=== PATIENT | male | born 1935 | race Caucasian/White ===

== ENCOUNTER 2017-01-22 15:53 | Emergency (ER) | payer MEDICARE, BC ==
[2017-01-22 16:13] VITALS: BP 158/78
[2017-01-22] MEDS ORDERED: Sodium Chloride 0.9% 500 ML IV ONE (16:46)
--- NOTE | 2017-01-22 16:57 | EDM.PDOC ---
ED HPI GENERAL MEDICAL PROBLEM - General Chief Complaint: Neuro Symptoms/Deficits Stated Complaint: NOT FEELING WELL Time Seen by Provider: 01/22/17 16:20 Source of Information: Reports: Patient, Family, Shelter Records History Limitations: Reports: Other (Chronic confusion, dementia) - History of Present Illness INITIAL COMMENTS - FREE TEXT/NARRATIVE: 81-year-old male was displaying symptoms of weakness, increased expressive aphasia which worried the long-term staff so they called family to come and check on him. The daughter came in to see him but when she got there he was already ready to go to the emergency room. She really can't say that he seems much different than his baseline. He has chronic agitation and does not want to be here. He has had similar episodes with dehydration, and does not take fluids well. The patient himself has no complaints. Onset: Unknown/Unsure Severity: Mild Associated Symptoms: Reports: No Other Symptoms - Related Data Allergies Allergy/AdvReac Type Severity Reaction Status Date / Time kiwi Allergy Severe Anaphylactic Verified 03/18/16 10:51 Shock [place] And Derivatives AdvReac Other Verified 03/19/16 10:40 simvastatin AdvReac Muscle Verified 03/19/16 10:40 Aches tomato AdvReac Other Verified 03/19/16 10:40 Home Meds: Home Meds Aspirin [Adult Low Dose Aspirin EC] 81 mg PO DAILY 11/09/13 [History] Clopidogrel Bisulfate [Clopidogrel] 75 mg PO DAILY 11/09/13 [History] [place]-3 Fatty Acids [[place]-3] 1,200 mg PO BID 11/09/13 [History] Calcium Carbonate/Vitamin D3 [Calcium 600-Vit D3 400 Tablet] 1,000 mg PO DAILY 11/11/13 [History] Nitroglycerin 0.4 mg SL ASDIRECTED PRN 10/27/15 [History] *[place] Collagen Gelatin 1 dose PO TID 02/25/16 [History] Acetaminophen 1,000 mg PO TID 02/25/16 [History] Hydroxychloroquine [Plaquenil] 1 tab PO BID 02/25/16 [History] Sertraline HCl [Zoloft] 50 mg PO DAILY 03/18/16 [History] Iron PS Complex & Vit B12/FA [Ferrex 150 Forte] 1 cap PO DAILY #30 cap 03/20/16 [Rx] Past Medical History HEENT History: Reports: Cataract Cardiovascular History: Reports: Stents, Other (See Below) 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 Musculoskeletal History: Reports: Osteoarthritis, RA Neurological History: Reports: Neuropathy, Peripheral Psychiatric History: Reports: Dementia Hematologic History: Reports: Anticoagulation Therapy Immunologic History: Reports: Other (See Below) Other Immunologic History: d/t medications Dermatologic History: Reports: Eczema - Infectious Disease History Infectious Disease History: Reports: Chicken Pox - Past Surgical History HEENT Surgical History: Reports: None Cardiovascular Surgical History: Reports: Coronary Artery Stent, Pacer GI Surgical History: Reports: Hernia Repair/Other Social & Family History - Family History Family Medical History: Noncontributory - Tobacco Use Smoking Status *Q: Never Smoker Years of Tobacco use: 20 Used Tobacco, but Quit: Yes Month Tobacco Last Used: April Second Hand Smoke Exposure: No - Caffeine Use Caffeine Use: Reports: None - Alcohol Use Days Per Week of Alcohol Use: 1 Number of Drinks Per Day: 1 Total Drinks Per Week: 1 - Recreational Drug Use Recreational Drug Use: No ED ROS GENERAL - Review of Systems Review Of Systems: Unable To Obtain (Patient cannot cooperate to give a review of systems, declines any problems) ED EXAM, NEURO - Physical Exam Exam: See Below General Appearance: Alert, No Apparent Distress, Other (Facial expressions looks symmetric, speech is clear. He does seem to have some expressive a phasic difficulties but he has a chronic waxing and waning problem with this. I do not know what his baseline is.) Eye Exam: Bilateral Eye: EOMI Respiratory/Chest: No Respiratory Distress, Lungs Clear Cardiovascular: Regular Rate, Rhythm GI/Abdominal: Soft, Non-Tender Neurological: Alert, Other (I cannot reproduce motor deficits, his grasp strength is equal and he can hold both legs up against gravity) Psychiatric: Other (Somewhat agitated personality) Skin Exam: Warm, Dry Course - Vital Signs Last Recorded V/S: Last Vital Signs Temp 97.4 F 01/22/17 16:09 Pulse 69 01/22/17 16:09 Resp 20 01/22/17 16:09 BP 158/78 H 01/22/17 16:09 Pulse Ox - Orders/Labs/Meds Labs: Laboratory Tests 01/22/17 01/22/17 Range/Units 16:54 16:54 WBC 7.5 (4.5-11.0) K/uL RBC 4.67 (4.30-5.90) M/uL Hgb 9.8 L (12.0-15.0) g/dL Hct 34.4 L (40.0-54.0) % MCV 74 L (80-98) fL MCH 21 L (27-31) pg MCHC 29 L (32-36) % Plt Count 457 H (150-400) K/uL Neut % (Auto) 75 H (36-66) % Lymph % (Auto) 11 L (24-44) % [place] % (Auto) 10 H (2-6) % Eos % (Auto) 4 (2-4) % Baso % (Auto) 1 (0-1) % Sodium 139 L (140-148) mmol/L Potassium 4.7 (3.6-5.2) mmol/L Chloride 102 (100-108) mmol/L Carbon Dioxide 32 (21-32) mmol/L Anion Gap 9.7 (5.0-14.0) mmol/L BUN 25 H (7-18) mg/dL Creatinine 0.9 (0.8-1.3) mg/dL Est Cr Clr Drug Dosing 58.45 mL/min Estimated GFR (MDRD) > 60 (>60) Glucose 113 H (74-106) mg/dL Calcium 8.6 (8.5-10.1) mg/dL Meds: Medications Discontinued Medications Generic Name Dose Route Start Last Admin Trade Name Freq PRN Reason Stop Dose Admin Sodium Chloride 500 mls @ 1,000 mls/hr 01/22/17 16:46 01/22/17 17:10 Normal Saline IV 01/22/17 17:15 1,000 mls/hr .BOLUS ONE Administration - Re-Assessments/Exams Free Text/Narrative Re-Assessment/Exam: 01/22/17 16:56 Patient will be given 500 mL of normal saline and we will check a CBC and BMP. No other workup is necessary at this time, no scan is necessary. His daughter who accompanies him and agrees with the plan. 01/22/17 17:39 patient received 500 mL of normal saline, his labs were reassuring. He is anemic but it's consistent with past levels. He was discharged with a diagnosis of mild dehydration. Departure - Departure Time of Disposition: 17:59 Disposition: DC/Tfer to [facility] Condition: Good Clinical Impression: Dehydration - Discharge Information Instructions: Dehydration, Adult, [id number] Referrals: Negrito Cronin MD [Primary Care Provider] - Forms: ED Department Discharge Care Plan Goals: Increase diet and activity as tolerated. Continue your regular medications. Return at any time if worsening or concerns.
== END 2017-01-22 17:59 ==
LOC: JP.ED 15:53
DX: E86.0 Dehydration (principal); M19.90 Unspecified osteoarthritis, unspecified site; Z91.018 Allergy to other foods; Z79.82 Long term (current) use of aspirin; Z79.899 Other long term (current) drug therapy
CPT/HCPCS: 36415; 80048; 85025; 96360; 99285; J7040; 99284

== ENCOUNTER 2017-03-13 08:24 | Emergency (ER) | payer MEDICARE, BC ==
--- NOTE | 2017-03-13 08:54 | EDM.PDOC ---
ED HPI GENERAL MEDICAL PROBLEM - General Chief Complaint: Upper Extremity Injury/Pain Stated Complaint: LEFT SHOULDER,CHEST DISCOMFORT Time Seen by Provider: 03/13/17 08:43 Source of Information: Reports: Patient, Family, RN Notes Reviewed History Limitations: Reports: No Limitations - History of Present Illness INITIAL COMMENTS - FREE TEXT/NARRATIVE: 81-year-old gentleman presents emergency department today complaint of left shoulder pain, he does live in assisted living center they're also concerned about intermittent chest pain that has been going on for a week he has had some falls over the last couple of months, one a couple of weeks ago. He is pain- free at this time he feels he has full range of motion of the left shoulder he states that it is intermittent and positional when he can induce the pain. However he is unable to reproduce it at this time Left Shoulder Pain Score (Numeric/FACES): 4 - Related Data Allergies Allergy/AdvReac Type Severity Reaction Status Date / Time kiwi Allergy Severe Anaphylactic Verified 03/18/16 10:51 Shock [place] And Derivatives AdvReac Other Verified 03/19/16 10:40 simvastatin AdvReac Muscle Verified 03/19/16 10:40 Aches tomato AdvReac Other Verified 03/19/16 10:40 Home Meds: Home Meds Aspirin [Adult Low Dose Aspirin EC] 81 mg PO DAILY 11/09/13 [History] Nitroglycerin 0.4 mg SL ASDIRECTED PRN 10/27/15 [History] *[place] Collagen Gelatin 1 dose PO TID 02/25/16 [History] Acetaminophen 1,000 mg PO TID 02/25/16 [History] Iron PS Complex & Vit B12/FA [Ferrex 150 Forte] 1 cap PO DAILY #30 cap 03/20/16 [Rx] Acetaminophen [Mapap] 500 mg PO TID 03/13/17 [History] DULoxetine [Cymbalta] 60 mg PO DAILY 03/13/17 [History] Furosemide [Lasix] 20 mg PO BID 03/13/17 [History] LORazepam [Ativan] 0.25 mg PO DAILY 03/13/17 [History] Melatonin 6 mg PO BEDTIME 03/13/17 [History] Mirtazapine 15 mg PO DAILY 03/13/17 [History] Nystatin [Nystatin Crm] 15 gm TOP BID 03/13/17 [History] [place]-3/DHA/Epa/Fish Oil [Fish Oil 1,000 mg Softgel] 1 each PO DAILY 03/13/17 [ History] [place]-3/DHA/Epa/Fish Oil [Fish Oil 1,400 MG Softgel] 1,500 mg PO DAILY 03/13/17 [History] Potassium 20 meq PO DAILY 03/13/17 [History] Prednisone [IJD: Prednisone] 5 mg PO DAILY 03/13/17 [History] Past Medical History HEENT History: Reports: Cataract Cardiovascular History: Reports: CAD, Stents, Other (See Below) 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 Musculoskeletal History: Reports: Osteoarthritis, RA Neurological History: Reports: Neuropathy, Peripheral Psychiatric History: Reports: Dementia Hematologic History: Reports: Anticoagulation Therapy Immunologic History: Reports: Other (See Below) Other Immunologic History: d/t medications Dermatologic History: Reports: Eczema - Infectious Disease History Infectious Disease History: Reports: Chicken Pox, Measles, Mumps - Past Surgical History HEENT Surgical History: Reports: None Cardiovascular Surgical History: Reports: Coronary Artery Stent, Pacer GI Surgical History: Reports: Hernia Repair/Other Social & Family History - Family History Family Medical History: Noncontributory - Tobacco Use Smoking Status *Q: Never Smoker Years of Tobacco use: 20 Used Tobacco, but Quit: Yes Month Tobacco Last Used: April Second Hand Smoke Exposure: No - Caffeine Use Caffeine Use: Reports: None - Alcohol Use Days Per Week of Alcohol Use: 1 Number of Drinks Per Day: 1 Total Drinks Per Week: 1 - Recreational Drug Use Recreational Drug Use: No Review of Systems - Review of Systems Review Of Systems: See Below Constitutional: Reports: No Symptoms Respiratory: Reports: No Symptoms Cardiovascular: Reports: Chest Pain GI/Abdominal: Reports: No Symptoms Genitourinary: Reports: No Symptoms Musculoskeletal: Reports: Arm Pain Skin: Reports: No Symptoms Neurological: Reports: No Symptoms ED EXAM, GENERAL - Physical Exam Exam: See Below Exam Limited By: No Limitations General Appearance: Alert, WD/WN, No Apparent Distress Respiratory/Chest: No Respiratory Distress, Lungs Clear, Normal Breath Sounds, No Accessory Muscle Use Cardiovascular: Regular Rate, Rhythm, No Murmur GI/Abdominal: Soft, Non-Tender Extremities: Normal Inspection, Other (full range of motion left arm radial pulse is +2 I can't appreciate any asymmetry there is no specific point tenderness the shoulder, no erythema no edema noted) Course - Vital Signs Last Recorded V/S: Last Vital Signs Temp 96.7 F 03/13/17 08:33 Pulse 67 03/13/17 10:10 Resp 14 03/13/17 10:10 BP 188/84 H 03/13/17 10:10 Pulse Ox 95 03/13/17 08:33 - Orders/Labs/Meds Orders: Active Orders 24 hr Category Date Time Status Cardiac Monitoring [RC] .As Directed Care 03/13/17 08:49 Active EKG Documentation Completion [RC] ASDIRECTED Care 03/13/17 08:50 Active EKG 12 Lead [EK] Stat Ther 03/13/17 08:50 Ordered Labs: Laboratory Tests 03/13/17 03/13/17 03/13/17 Range/Units 09:00 09:00 11:00 WBC 8.4 (4.5-11.0) K/uL RBC 4.85 (4.30-5.90) M/uL Hgb 10.4 L (12.0-15.0) g/dL Hct 36.4 L (40.0-54.0) % MCV 75 L (80-98) fL MCH 21 L (27-31) pg MCHC 29 L (32-36) % Plt Count 397 (150-400) K/uL Neut % (Auto) 77 H (36-66) % Lymph % (Auto) 11 L (24-44) % [place] % (Auto) 8 H (2-6) % Eos % (Auto) 4 (2-4) % Baso % (Auto) 1 (0-1) % Sodium 138 L (140-148) mmol/L Potassium 4.1 (3.6-5.2) mmol/L Chloride 100 (100-108) mmol/L Carbon Dioxide 29 (21-32) mmol/L Anion Gap 13.1 (5.0-14.0) mmol/L BUN 20 H (7-18) mg/dL Creatinine 0.9 (0.8-1.3) mg/dL Est Cr Clr Drug Dosing 65.34 mL/min Estimated GFR (MDRD) > 60 (>60) Glucose 132 H (74-106) mg/dL Calcium 8.8 (8.5-10.1) mg/dL Total Bilirubin 0.4 (0.2-1.0) mg/dL AST 14 L (15-37) U/L ALT 19 (12-78) U/L Alkaline Phosphatase 89 (46-116) U/L Troponin I 0.062 H* 0.052 (0.000-0.056) ng/mL Total Protein 6.9 (6.4-8.2) g/dL Albumin 2.9 L (3.4-5.0) g/dL Globulin 4.0 H (2.3-3.5) g/dL Albumin/Globulin Ratio 0.7 L (1.2-2.2) Lipase 115 (73-393) U/L - Re-Assessments/Exams Free Text/Narrative Re-Assessment/Exam: 03/13/17 10:01 Reviewed lab work and x-ray results with family also reviewed old records from 2015 of which she had a non-ST elevation myocardial infarction discussed the possibility of transfer to cardiology for further evaluation, they declined at this time would want to wait until for the family members arrive to decide what the best course of action would be, therefore in a redraw another troponin at 11 AM he remains chest pain-free Departure - Departure Time of Disposition: 11:36 Disposition: [facility] Condition: Fair Clinical Impression: Acute coronary syndrome - Discharge Information Referrals: Negrito Cronin MD [Primary Care Provider] - Forms: ED Department Discharge Additional Instructions: Please followup with your primary care provider in 2-3 days if not better, please call return to the emergency department with worsening of symptoms. - My Orders Last 24 Hours: My Active Orders 03/13/17 08:49 Cardiac Monitoring [RC] .As Directed 03/13/17 08:50 EKG Documentation Completion [RC] ASDIRECTED EKG 12 Lead [EK] Stat - Assessment/Plan Last 24 Hours: My Active Orders 03/13/17 08:49 Cardiac Monitoring [RC] .As Directed 03/13/17 08:50 EKG Documentation Completion [RC] ASDIRECTED EKG 12 Lead [EK] Stat Plan: Assessment Acuity = acute Site and laterality = chest pain with left arm pain complicated patient with known history of coronary artery disease as well as dementia Etiology = suspicious for coronary artery syndrome Manifestations = chest pain now resolved Location of injury = Home Lab values = hemoglobin low at 10.4 consistent with microchromic anemia troponin initially 0.0622 hours later 0.05 to within normal limits albumin low at 2.9 consistent hypoalbuminemia EKG demonstrates a paced rhythm x-ray of the left shoulder shows degenerative joint disease no acute fracture appreciated Plan I did review old records and lab results EKG and x-ray results with the family in 2016 he had a non-ST elevation myocardial infarction was transported to [facility] underwent stenting process of the RCA, I did review this with them also noted the possibility that he may be having another heart attack at this time however they have stopped some of his medications mainly the Plavix and statin because of complications they elected to not do any aggressive measures at this time and he did not want to pursue hospital admission or evaluation by cardiology with the potential of cardiac catheterization at this time. Patient was in agreement with the plan all questions were answered, they were instructed to return to the emergency department or call for worsening symptoms. This note was dictated using [employer] voice recognition software please call with any questions.
--- NOTE | 2017-03-13 09:29 | CR ---
Left shoulder There is degenerative joint space loss at the glenohumeral joint. There are no posttraumatic findings . The soft tissues are unremarkable. Impression: 1. Osteoarthritis. 2. No acute findings.
[2017-03-13 10:10] VITALS: BP 188/84
== END 2017-03-13 11:45 ==
LOC: JP.ED 08:24
DX: M25.512 Pain in left shoulder (principal); I25.10 Atherosclerotic heart disease of native coronary artery without angina pectoris; I25.2 Old myocardial infarction; F03.90 Unspecified dementia, unspecified severity, without behavioral disturbance, psychotic disturbance, mood disturbance, and anxiety; Z91.018 Allergy to other foods; Z88.8 Allergy status to other drugs, medicaments and biological substances; Z79.82 Long term (current) use of aspirin; Z79.899 Other long term (current) drug therapy; Z79.01 Long term (current) use of anticoagulants; Z87.891 Personal history of nicotine dependence
CPT/HCPCS: 36415; 73030-26-LT; 73030-LT; 80053; 83690; 84484; 85025; 93005; 93010; 99285; 99285-25

== ENCOUNTER 2017-04-18 20:19 | Inpatient (IN) | payer MEDICARE, BC ==
[2017-04-18] MEDS ORDERED: methylPREDNISolone Sodium Succinate 125 MG/2 ML SDV IVPUSH ONE (20:23)
[2017-04-18] MEDS ORDERED: Albuterol 0.083% 2.5 MG/3 ML Neb Soln NEB ONE (20:23)
[2017-04-18] MEDS ORDERED: methylPREDNISolone Sodium Succinate 125 MG/2 ML SDV ONE (20:25)
[2017-04-18] MEDS ORDERED: Sodium Chloride 0.9% 1,000 ML IV SCH ×2 (20:30→22:00)
--- NOTE | 2017-04-18 20:58 | EDM.PDOC ---
ED HPI GENERAL MEDICAL PROBLEM - General Chief Complaint: Respiratory Problem Stated Complaint: ILLNESS Time Seen by Provider: 04/18/17 20:35 Source of Information: Reports: Patient History Limitations: Reports: No Limitations - History of Present Illness INITIAL COMMENTS - FREE TEXT/NARRATIVE: pt hs been ill for the past 2 days. He became very sob tonight and he was found to hve o2 sats in the 77 range. He has not bn running a high temp. He was feling very sob. Onset: Gradual, Other (last 2 days. ) Duration: Hour(s): Location: Reports: Chest Severity: Moderate Associated Symptoms: Reports: Cough, Shortness of Breath, Other (pt has been very wheezy. ) - Related Data Allergies Allergy/AdvReac Type Severity Reaction Status Date / Time kiwi Allergy Severe Anaphylactic Verified 03/18/16 10:51 Shock hydrocodone Allergy Other Verified 04/02/17 12:27 [place] And Derivatives AdvReac Other Verified 03/19/16 10:40 simvastatin AdvReac Muscle Verified 03/19/16 10:40 Aches tomato AdvReac Other Verified 03/19/16 10:40 Home Meds: Home Meds Aspirin [Adult Low Dose Aspirin EC] 81 mg PO DAILY 11/09/13 [History] Nitroglycerin 0.4 mg SL ASDIRECTED PRN 10/27/15 [History] *[place] Collagen Gelatin 1 dose PO TID 02/25/16 [History] Acetaminophen 1,000 mg PO TID 02/25/16 [History] Acetaminophen [Mapap] 500 mg PO TID 03/13/17 [History] DULoxetine [Cymbalta] 60 mg PO DAILY 03/13/17 [History] Furosemide [Lasix] 20 mg PO BID 03/13/17 [History] LORazepam [Ativan] 0.5 mg PO DAILY 03/13/17 [History] Melatonin 6 mg PO BEDTIME 03/13/17 [History] Mirtazapine 15 mg PO DAILY 03/13/17 [History] Nystatin [Nystatin Crm] 15 gm TOP BID 03/13/17 [History] [place]-3/DHA/Epa/Fish Oil [Fish Oil 1,000 mg Softgel] 1 each PO DAILY 03/13/17 [ History] [place]-3/DHA/Epa/Fish Oil [Fish Oil 1,400 MG Softgel] 1,500 mg PO DAILY 03/13/17 [History] Potassium 20 meq PO DAILY 03/13/17 [History] Prednisone [IJD: Prednisone] 5 mg PO DAILY 03/13/17 [History] Aspirin [Adult Low Dose Aspirin EC] 81 mg PO DAILY 04/18/17 [History] Iron PS Complex & Vit B12/FA [Ferrex 150 Forte] 1 cap PO BID 04/18/17 [History] L.acidoph,Paracasei, B.lactis [Probiotic] 1 cap PO DAILY 04/18/17 [History] Mineral Oil/Pet Hy-Phl Oint [Aquaphor Healing Ointment] 1 applic TOP BID [History] Past Medical History HEENT History: Reports: Cataract Cardiovascular History: Reports: CAD, Stents, Other (See Below) 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 Musculoskeletal History: Reports: Osteoarthritis, RA Neurological History: Reports: Neuropathy, Peripheral Psychiatric History: Reports: Dementia Hematologic History: Reports: Anticoagulation Therapy Immunologic History: Reports: Other (See Below) Other Immunologic History: d/t medications Dermatologic History: Reports: Eczema - Infectious Disease History Infectious Disease History: Reports: Chicken Pox, Measles, Mumps - Past Surgical History HEENT Surgical History: Reports: None Cardiovascular Surgical History: Reports: Coronary Artery Stent, Pacer GI Surgical History: Reports: Hernia Repair/Other Social & Family History - Family History Family Medical History: Noncontributory - Tobacco Use Smoking Status *Q: Never Smoker Years of Tobacco use: 20 Used Tobacco, but Quit: Yes Month Tobacco Last Used: April Second Hand Smoke Exposure: No - Caffeine Use Caffeine Use: Reports: None - Alcohol Use Days Per Week of Alcohol Use: 1 Number of Drinks Per Day: 1 Total Drinks Per Week: 1 - Recreational Drug Use Recreational Drug Use: No ED ROS GENERAL - Review of Systems Review Of Systems: See Below Constitutional: Reports: Weakness, Other (marked sob. ) HEENT: Reports: No Symptoms Respiratory: Reports: Shortness of Breath, Wheezing, Cough, Other ( Pt was very tight in the chest. ) Cardiovascular: Reports: No Symptoms Endocrine: Reports: No Symptoms GI/Abdominal: Reports: No Symptoms : Reports: No Symptoms Musculoskeletal: Reports: No Symptoms Skin: Reports: No Symptoms Neurological: Reports: No Symptoms Psychiatric: Reports: Anxiety ED EXAM, GENERAL - Physical Exam Exam: See Below Free Text/Narrative:: Pt arrived with marked wheezing and feeling very sob. He has not felt well for the past 2 days. Exam Limited By: No Limitations General Appearance: Alert, Anxious Ears: Normal TMs Nose: Normal Inspection Throat/Mouth: Normal Inspection Head: Atraumatic Neck: Normal Inspection Respiratory/Chest: Decreased Breath Sounds, Wheezing Cardiovascular: Regular Rate, Rhythm GI/Abdominal: Soft, Non-Tender (Male) Exam: Deferred Rectal (Males) Exam: Deferred Back Exam: Normal Inspection Extremities: Other ( left leg is larger than the right but this is not new for him. He does not have a lot of swelling. ) Neurological: Alert, Oriented, Normal Cognition, Other (pt was very sob. ) Psychiatric: Normal Affect Course - Vital Signs Last Recorded V/S: Last Vital Signs Temp 37.1 C 04/18/17 21:03 Pulse 107 H 04/18/17 21:30 Resp 24 H 04/18/17 21:30 BP 136/69 04/18/17 21:03 Pulse Ox 96 04/18/17 21:30 - Orders/Labs/Meds Orders: Active Orders 24 hr Category Date Time Status RT Aerosol Therapy [RC] ASDIRECTED Care 04/18/17 20:23 Active Chest 1V Frontal [CR] Stat Exams 04/18/17 20:25 Taken INFLUENZA A+B AG SCREEN [RM] Stat Lab 04/18/17 21:04 Ordered LACTIC ACID [CHEM] Stat Lab 04/18/17 21:22 Ordered UA W/MICROSCOPIC [URIN] Urgent Lab 04/18/17 20:24 Uncollected Acetaminophen [Tylenol] Med 04/18/17 21:47 Once 1,000 mg PO NOW ONE Sodium Chloride 0.9% [Normal Saline] 1,000 ml Med 04/18/17 20:30 Active IV ASDIRECTED Medication Orders Acetaminophen (Tylenol) 1,000 mg PO NOW ONE Stop: 04/18/17 21:48 Sodium Chloride (Normal Saline) 1,000 mls @ 150 mls/hr IV ASDIRECTED ZEYNEP Last Admin: 04/18/17 21:05 Dose: 150 mls/hr Labs: Laboratory Tests 04/18/17 04/18/17 04/18/17 Range/Units 20:26 20:36 20:36 WBC 12.1 H (4.5-11.0) K/uL RBC 4.91 (4.30-5.90) M/uL Hgb 10.8 L (12.0-15.0) g/dL Hct 37.1 L (40.0-54.0) % MCV 76 L (80-98) fL MCH 22 L (27-31) pg MCHC 29 L (32-36) % Plt Count 375 (150-400) K/uL Neut % (Auto) 88 H (36-66) % Lymph % (Auto) 4 L (24-44) % [place] % (Auto) 7 H (2-6) % Eos % (Auto) 2 (2-4) % Baso % (Auto) 0 (0-1) % Puncture Site Rt.radial ABG pH 7.369 (7.350-7.450) ABG pCO2 47.0 H (35.0-42.0) mmHg ABG pO2 87.2 (75.0-100.0) mmHg ABG HCO3 26.4 H (22.0-26.0) mmol/L ABG Total CO2 24.5 (23.0-27.0) mmol/L ABG O2 Saturation 96.1 (95.0-98.0) % ABG O2 Content 14.5 L (15.0-23.0) %vol ABG Base Excess 1.3 mm/L ABG Hemoglobin 10.9 L (13.5-18.0) g/dL ABG Oxyhemoglobin 94.3 % ABG Carboxyhemoglobin 1.3 (0.0-1.6) % ABG Methemoglobin 0.6 % Carlos Test Passed O2 Delivery Device Nasal cannula Oxygen Flow Rate 3 L Sodium 142 (140-148) mmol/L Potassium 4.4 (3.6-5.2) mmol/L Chloride 103 (100-108) mmol/L Carbon Dioxide 29 (21-32) mmol/L Anion Gap 9.8 (5.0-14.0) mmol/L BUN 30 H (7-18) mg/dL Creatinine 1.3 D (0.8-1.3) mg/dL Est Cr Clr Drug Dosing 45.24 mL/min Estimated GFR (MDRD) 53 L (>60) Glucose 237 H (74-106) mg/dL Calcium 8.6 (8.5-10.1) mg/dL Total Bilirubin 0.2 (0.2-1.0) mg/dL AST 18 (15-37) U/L ALT 19 (12-78) U/L Alkaline Phosphatase 87 (46-116) U/L NT-Pro-B Natriuret Pep (5-450) pg/mL Total Protein 6.9 (6.4-8.2) g/dL Albumin 3.0 L (3.4-5.0) g/dL Globulin 3.9 H (2.3-3.5) g/dL Albumin/Globulin Ratio 0.8 L (1.2-2.2) 04/18/17 Range/Units 20:52 WBC (4.5-11.0) K/uL RBC (4.30-5.90) M/uL Hgb (12.0-15.0) g/dL Hct (40.0-54.0) % MCV (80-98) fL MCH (27-31) pg MCHC (32-36) % Plt Count (150-400) K/uL Neut % (Auto) (36-66) % Lymph % (Auto) (24-44) % [place] % (Auto) (2-6) % Eos % (Auto) (2-4) % Baso % (Auto) (0-1) % Puncture Site ABG pH (7.350-7.450) ABG pCO2 (35.0-42.0) mmHg ABG pO2 (75.0-100.0) mmHg ABG HCO3 (22.0-26.0) mmol/L ABG Total CO2 (23.0-27.0) mmol/L ABG O2 Saturation (95.0-98.0) % ABG O2 Content (15.0-23.0) %vol ABG Base Excess mm/L ABG Hemoglobin (13.5-18.0) g/dL ABG Oxyhemoglobin % ABG Carboxyhemoglobin (0.0-1.6) % ABG Methemoglobin % Carlos Test O2 Delivery Device Oxygen Flow Rate L Sodium (140-148) mmol/L Potassium (3.6-5.2) mmol/L Chloride (100-108) mmol/L Carbon Dioxide (21-32) mmol/L Anion Gap (5.0-14.0) mmol/L BUN (7-18) mg/dL Creatinine (0.8-1.3) mg/dL Est Cr Clr Drug Dosing mL/min Estimated GFR (MDRD) (>60) Glucose (74-106) mg/dL Calcium (8.5-10.1) mg/dL Total Bilirubin (0.2-1.0) mg/dL AST (15-37) U/L ALT (12-78) U/L Alkaline Phosphatase (46-116) U/L NT-Pro-B Natriuret Pep 3785 H (5-450) pg/mL Total Protein (6.4-8.2) g/dL Albumin (3.4-5.0) g/dL Globulin (2.3-3.5) g/dL Albumin/Globulin Ratio (1.2-2.2) Meds: Medications Generic Name Dose Route Start Last Admin Trade Name Freq PRN Reason Stop Dose Admin Acetaminophen 1,000 mg 04/18/17 21:47 Tylenol PO 04/18/17 21:48 NOW ONE Sodium Chloride 1,000 mls @ 150 mls/hr 04/18/17 20:30 04/18/17 21:05 Normal Saline IV 150 mls/hr ASDIRECTED ZEYNEP Administration Discontinued Medications Generic Name Dose Route Start Last Admin Trade Name Freq PRN Reason Stop Dose Admin Albuterol 2.5 mg 04/18/17 20:23 04/18/17 21:05 Proventil Neb Soln NEB 04/18/17 20:24 2.5 mg ONETIME ONE Administration Furosemide 40 mg 04/18/17 21:25 Lasix IVPUSH 04/18/17 21:26 ONETIME ONE Methylprednisolone Sodium Succinate 125 mg 04/18/17 20:23 04/18/17 21:05 Solu-Medrol IVPUSH 04/18/17 20:24 125 mg ONETIME ONE Administration Methylprednisolone Sodium Succinate Confirm 04/18/17 20:25 04/18/17 21:33 Solu-Medrol Administered 04/18/17 20:26 Not Given Dose 125 mg .ROUTE .STK-MED ONE - Re-Assessments/Exams Free Text/Narrative Re-Assessment/Exam: 04/18/17 21:50 Pt arrived very tight and wheezy. His o2 sats dropped into the 80s. . He was very tight and wheezy. He had a neb in the ambulance and was doing better. He had sats in the 90s. His chest xray reveald cardiomegoly, possible failure. His bnp was elevated. His wbc was 12,000. He was given another neb. He was given solumedrol 125. He was given his usual tylenol of 1000 mg. An iv was started at 100cc per hour. Departure - Departure Time of Disposition: 21:58 Disposition: Admitted As Inpatient 65 Condition: Fair Clinical Impression: Bronchitis, Lactic acid blood increased, Elevated brain natriuretic peptide ( BNP) level, Bronchospasm - Discharge Information Referrals: Negrito Cronin MD [Primary Care Provider] - Forms: ED Department Discharge Care Plan Goals: admit to [facility]. - My Orders Last 24 Hours: My Active Orders 04/18/17 20:23 RT Aerosol Therapy [RC] ASDIRECTED 04/18/17 20:24 UA W/MICROSCOPIC [URIN] Urgent 04/18/17 20:25 Chest 1V Frontal [CR] Stat 04/18/17 20:30 Sodium Chloride 0.9% [Normal Saline] 1,000 ml IV ASDIRECTED 04/18/17 21:04 INFLUENZA A+B AG SCREEN [RM] Stat 04/18/17 21:22 LACTIC ACID [CHEM] Stat 04/18/17 21:47 Acetaminophen [Tylenol] 1,000 mg PO NOW ONE - Assessment/Plan Last 24 Hours: My Active Orders 04/18/17 20:23 RT Aerosol Therapy [RC] ASDIRECTED 04/18/17 20:24 UA W/MICROSCOPIC [URIN] Urgent 04/18/17 20:25 Chest 1V Frontal [CR] Stat 04/18/17 20:30 Sodium Chloride 0.9% [Normal Saline] 1,000 ml IV ASDIRECTED 04/18/17 21:04 INFLUENZA A+B AG SCREEN [RM] Stat 04/18/17 21:22 LACTIC ACID [CHEM] Stat 04/18/17 21:47 Acetaminophen [Tylenol] 1,000 mg PO NOW ONE
[2017-04-18] MEDS ORDERED: Furosemide 40 MG/4 ML VIAL IVPUSH ONE (21:25)
[2017-04-18] MEDS ORDERED: Acetaminophen 325 MG Tab PO ONE (21:47)
[2017-04-18] MEDS ORDERED: Acetaminophen 500 MG Tab PO ONE (21:54)
[2017-04-18] MEDS ORDERED: cefTRIAXone 1 GM in Sodium Chloride 0.9% 50 ML IV ONE (21:57)
--- NOTE | 2017-04-19 00:30 | PCM.HP ---
H&P History of Present Illness - General Date of Service: 04/19/17 Admit Problem/Dx: Admission Diagnosis/Problem Admission Diagnosis/Problem Bronchitis with bronchospasm Source of Information: Patient, EMS Notes Reviewed, Family (Daughter Gaye), Provider History Limitations: Reports: No Limitations - History of Present Illness Initial Comments - Free Text/Narative: pt hs been ill for the past 2 days. He became very sob tonight and he was found to have o2 sats in the 77 range. He has not been running a high temp. He was feeling very sob. Onset: Gradual, Other (last 2 days. ) Duration: Hour(s): Location: Reports: Chest Severity: Moderate Associated Symptoms: Reports: Cough, Shortness of Breath, Other (pt has been very wheezy. ) 04/18/17 21:50 Pt arrived very tight and wheezy. His o2 sats dropped into the 80s. . He was very tight and wheezy. He had a neb in the ambulance and was doing better. He had sats in the 90s. His chest xray revealed cardiomegoly, possible failure. His bnp was elevated. His wbc was 12,000. He was given another neb. He was given solumedrol 125. He was given his usual tylenol of 1000 mg. An iv was started at 100cc per hour. - Duration of Symptoms: Reports: Day(s): (2) Location: Reports: Generalized Severity: Moderate Improves with: Reports: Medication (nebulizer treatment) Worsens with: Reports: None Associated Symptoms: Reports: Cough, Shortness of Breath, Weakness Generalized Pain Score (Numeric/FACES): 3 - Related Data Allergies/Adverse Reactions: Allergies Allergy/AdvReac Type Severity Reaction Status Date / Time kiwi Allergy Severe Anaphylactic Verified 03/18/16 10:51 Shock hydrocodone Allergy Other Verified 04/02/17 12:27 [place] And Derivatives AdvReac Other Verified 03/19/16 10:40 simvastatin AdvReac Muscle Verified 03/19/16 10:40 Aches tomato AdvReac Other Verified 03/19/16 10:40 Home Medications: Home Meds Aspirin [Adult Low Dose Aspirin EC] 81 mg PO DAILY 11/09/13 [History] Nitroglycerin 0.4 mg SL ASDIRECTED PRN 10/27/15 [History] *[place] Collagen Gelatin 1 dose PO TID 02/25/16 [History] Acetaminophen 1,000 mg PO TID 02/25/16 [History] Acetaminophen [Mapap] 500 mg PO TID 03/13/17 [History] DULoxetine [Cymbalta] 60 mg PO DAILY 03/13/17 [History] Furosemide [Lasix] 20 mg PO BID 03/13/17 [History] LORazepam [Ativan] 0.25 mg PO DAILY 03/13/17 [History] Melatonin 6 mg PO BEDTIME 03/13/17 [History] Mirtazapine 15 mg PO DAILY 03/13/17 [History] Nystatin [Nystatin Crm] 15 gm TOP BID 03/13/17 [History] [place]-3/DHA/Epa/Fish Oil [Fish Oil 1,000 mg Softgel] 1 each PO DAILY 03/13/17 [ History] [place]-3/DHA/Epa/Fish Oil [Fish Oil 1,400 MG Softgel] 1,500 mg PO DAILY 03/13/17 [History] Potassium 20 meq PO DAILY 03/13/17 [History] Prednisone [IJD: Prednisone] 5 mg PO DAILY 03/13/17 [History] Aspirin [Adult Low Dose Aspirin EC] 81 mg PO DAILY 04/18/17 [History] Iron PS Complex & Vit B12/FA [Ferrex 150 Forte] 1 cap PO BID 04/18/17 [History] L.acidoph,Paracasei, B.lactis [Probiotic] 1 cap PO DAILY 04/18/17 [History] Mineral Oil/Pet Hy-Phl Oint [Aquaphor Healing Ointment] 1 applic TOP BID [History] Past Medical History HEENT History: Reports: Cataract Cardiovascular History: Reports: CAD, Stents, Other (See Below) 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 Musculoskeletal History: Reports: Osteoarthritis, RA Neurological History: Reports: Neuropathy, Peripheral Psychiatric History: Reports: Dementia Hematologic History: Reports: Anticoagulation Therapy Immunologic History: Reports: Other (See Below) Other Immunologic History: d/t medications Dermatologic History: Reports: Eczema - Infectious Disease History Infectious Disease History: Reports: Chicken Pox, Measles, Mumps - Past Surgical History HEENT Surgical History: Reports: None Cardiovascular Surgical History: Reports: Coronary Artery Stent, Pacer GI Surgical History: Reports: Hernia Repair/Other Social & Family History - Family History Family Medical History: Noncontributory - Tobacco Use Smoking Status *Q: Never Smoker Years of Tobacco use: 20 Used Tobacco, but Quit: Yes Month Tobacco Last Used: April Second Hand Smoke Exposure: No - Caffeine Use Caffeine Use: Reports: None - Alcohol Use Days Per Week of Alcohol Use: 1 Number of Drinks Per Day: 1 Total Drinks Per Week: 1 - Recreational Drug Use Recreational Drug Use: No H&P Review of Systems - Review of Systems: Review Of Systems: See Below General: Reports: Weakness, Fatigue, Other (shortness of breath) HEENT: Reports: No Symptoms Pulmonary: Reports: Shortness of Breath, Pleuritic Chest Pain Cardiovascular: Reports: Edema Gastrointestinal: Reports: No Symptoms Genitourinary: Reports: No Symptoms Musculoskeletal: Reports: Muscle Pain Skin: Reports: Pallor Psychiatric: Reports: No Symptoms Neurological: Reports: Pre-Existing Deficit Hematologic/Lymphatic: Reports: No Symptoms Immunologic: Reports: No Symptoms Exam - Exam Exam: See Below - Vital Signs Vital Signs: Last Vital Signs Temp 37.6 C 04/18/17 22:24 Pulse 106 H 04/18/17 22:24 Resp 21 H 04/18/17 22:24 BP 159/85 H 04/18/17 22:24 Pulse Ox 96 04/18/17 22:24 Weight: 83.915 kg - Exam Quality Assessment: Supplemental Oxygen General: Alert, Cooperative HEENT: PERRLA, Conjunctiva Clear, EACs Clear, EOMI, Hearing Intact, Mucosa Moist & [place], Nares Patent, Normal Nasal Septum, Posterior Pharynx Clear, Pupils Equal, Pupils Reactive Neck: Supple, Trachea Midline Lungs: Decreased Breath Sounds, Crackles Cardiovascular: Regular Rate, Regular Rhythm, Normal S1, Normal S2 GI/Abdominal Exam: Normal Bowel Sounds, Soft, Non-Tender, No Organomegaly, No Distention (Male) Exam: Deferred Rectal (Males) Exam: Deferred Back Exam: Normal Inspection, Full Range of Motion Extremities: Pedal Edema Skin: Warm, Dry, Intact Neurological: Strength Equal Bilateral Neuro Extensive - Mental Status: Alert, Normal Mood/Affect, Normal Cognition Neuro Extensive - Motor, Sensory, Reflexes: Motor/Sensory Deficits Psychiatric: Alert, Normal Affect, Normal Mood - Patient Data Lab Results Last 24 hrs: Laboratory Results - last 24 hr 04/18/17 04/18/17 04/18/17 Range/Units 20:26 20:36 20:36 WBC 12.1 H (4.5-11.0) K/uL RBC 4.91 (4.30-5.90) M/uL Hgb 10.8 L (12.0-15.0) g/dL Hct 37.1 L (40.0-54.0) % MCV 76 L (80-98) fL MCH 22 L (27-31) pg MCHC 29 L (32-36) % Plt Count 375 (150-400) K/uL Neut % (Auto) 88 H (36-66) % Lymph % (Auto) 4 L (24-44) % [place] % (Auto) 7 H (2-6) % Eos % (Auto) 2 (2-4) % Baso % (Auto) 0 (0-1) % Puncture Site Rt.radial ABG pH 7.369 (7.350-7.450) ABG pCO2 47.0 H (35.0-42.0) mmHg ABG pO2 87.2 (75.0-100.0) mmHg ABG HCO3 26.4 H (22.0-26.0) mmol/L ABG Total CO2 24.5 (23.0-27.0) mmol/L ABG O2 Saturation 96.1 (95.0-98.0) % ABG O2 Content 14.5 L (15.0-23.0) %vol ABG Base Excess 1.3 mm/L ABG Hemoglobin 10.9 L (13.5-18.0) g/dL ABG Oxyhemoglobin 94.3 % ABG Carboxyhemoglobin 1.3 (0.0-1.6) % ABG Methemoglobin 0.6 % Carlos Test Passed O2 Delivery Device Nasal cannula Oxygen Flow Rate 3 L Sodium 142 (140-148) mmol/L Potassium 4.4 (3.6-5.2) mmol/L Chloride 103 (100-108) mmol/L Carbon Dioxide 29 (21-32) mmol/L Anion Gap 9.8 (5.0-14.0) mmol/L BUN 30 H (7-18) mg/dL Creatinine 1.3 D (0.8-1.3) mg/dL Est Cr Clr Drug Dosing 45.24 mL/min Estimated GFR (MDRD) 53 L (>60) Glucose 237 H (74-106) mg/dL Lactic Acid (0.4-2.0) mmol/L Calcium 8.6 (8.5-10.1) mg/dL Total Bilirubin 0.2 (0.2-1.0) mg/dL AST 18 (15-37) U/L ALT 19 (12-78) U/L Alkaline Phosphatase 87 (46-116) U/L NT-Pro-B Natriuret Pep (5-450) pg/mL Total Protein 6.9 (6.4-8.2) g/dL Albumin 3.0 L (3.4-5.0) g/dL Globulin 3.9 H (2.3-3.5) g/dL Albumin/Globulin Ratio 0.8 L (1.2-2.2) 04/18/17 04/18/17 Range/Units 20:52 21:22 WBC (4.5-11.0) K/uL RBC (4.30-5.90) M/uL Hgb (12.0-15.0) g/dL Hct (40.0-54.0) % MCV (80-98) fL MCH (27-31) pg MCHC (32-36) % Plt Count (150-400) K/uL Neut % (Auto) (36-66) % Lymph % (Auto) (24-44) % [place] % (Auto) (2-6) % Eos % (Auto) (2-4) % Baso % (Auto) (0-1) % Puncture Site ABG pH (7.350-7.450) ABG pCO2 (35.0-42.0) mmHg ABG pO2 (75.0-100.0) mmHg ABG HCO3 (22.0-26.0) mmol/L ABG Total CO2 (23.0-27.0) mmol/L ABG O2 Saturation (95.0-98.0) % ABG O2 Content (15.0-23.0) %vol ABG Base Excess mm/L ABG Hemoglobin (13.5-18.0) g/dL ABG Oxyhemoglobin % ABG Carboxyhemoglobin (0.0-1.6) % ABG Methemoglobin % Carlos Test O2 Delivery Device Oxygen Flow Rate L Sodium (140-148) mmol/L Potassium (3.6-5.2) mmol/L Chloride (100-108) mmol/L Carbon Dioxide (21-32) mmol/L Anion Gap (5.0-14.0) mmol/L BUN (7-18) mg/dL Creatinine (0.8-1.3) mg/dL Est Cr Clr Drug Dosing mL/min Estimated GFR (MDRD) (>60) Glucose (74-106) mg/dL Lactic Acid 2.9 H (0.4-2.0) mmol/L Calcium (8.5-10.1) mg/dL Total Bilirubin (0.2-1.0) mg/dL AST (15-37) U/L ALT (12-78) U/L Alkaline Phosphatase (46-116) U/L NT-Pro-B Natriuret Pep 3785 H (5-450) pg/mL Total Protein (6.4-8.2) g/dL Albumin (3.4-5.0) g/dL Globulin (2.3-3.5) g/dL Albumin/Globulin Ratio (1.2-2.2) Result Diagrams: 04/18/17 20:36 04/18/17 20:36 [place] Results Last 24 hrs: Microbiology 04/18/17 21:04 Influenza Type A Antigen Screen - Final Nasopharyngeal Swab - Nare, Unspecified NEGATIVE INFLUENZA A VIRUS AG Influenza Type B Antigen Screen - Final NEGATIVE INFLUENZA B VIRUS AG *Q Meaningful Use (ADM) - VTE *Q VTE Criteria *Q: - Stroke *Q Stroke Criteria *Q: - AMI *Q AMI Criteria *Q: - Problem List (1) Bronchitis SNOMED Code(s): 93540828 ICD Code: J40 - BRONCHITIS, NOT SPECIFIED ACUTE OR CHRONIC Status: Acute Priority: High Current Visit: Yes (2) Bronchospasm SNOMED Code(s): 9469038 ICD Code: J98.01 - ACUTE BRONCHOSPASM Status: Acute Priority: High Current Visit: Yes (3) Lactic acid blood increased SNOMED Code(s): 1403810 ICD Code: R79.89 - OTHER SPECIFIED ABNORMAL FINDINGS OF BLOOD CHEMISTRY Status: Acute Priority: High Current Visit: Yes (4) Coronary artery disease SNOMED Code(s): 20738176 ICD Code: I25.10 - ATHSCL HEART DISEASE OF [place] CORONARY ARTERY W/O ANG PCTRS Status: Chronic Priority: High Current Visit: No Qualifiers: Coronary Disease-Associated Artery/Lesion type: [place] artery [place] vs. transplanted heart: [place] heart Associated angina: without angina Qualified Code(s): I25.10 - Atherosclerotic heart disease of [place] coronary artery without angina pectoris Problem List Initiated/Reviewed/Updated: Yes Orders Last 24hrs: Active Orders 24 hr Category Date Time Status Patient Status Manage Transfer [TRANSFER] Routine ADT 04/18/17 23:52 Ordered RT Aerosol Therapy [RC] ASDIRECTED Care 04/18/17 20:23 Active Chest 1V Frontal [CR] Stat Exams 04/18/17 20:25 Taken UA W/MICROSCOPIC [URIN] Urgent Lab 04/18/17 20:24 Uncollected Sodium Chloride 0.9% [Normal Saline] 1,000 ml Med 04/18/17 20:30 Active IV ASDIRECTED Sodium Chloride 0.9% [Normal Saline] 1,000 ml Med 04/18/17 22:00 Active IV ASDIRECTED Resuscitation Status Routine Resus Stat 04/18/17 23:53 Ordered Medication Orders Sodium Chloride (Normal Saline) 1,000 mls @ 150 mls/hr IV ASDIRECTED ZEYNEP Last Admin: 04/18/17 21:05 Dose: 150 mls/hr Sodium Chloride (Normal Saline) 1,000 mls @ 500 mls/hr IV ASDIRECTED ZENYEP Assessment/Plan Comment:: Assessment/Plan Comment:: ASSESSMENT AND PLAN - Bronchtis with bronchospasm - history of COPD, quit smoking years ago.. He is hypoxic upon arrival to ER via EMS and requiring supplemental oxygen and not safe for outpatient management. No fevers at this time. No recent antibiotics. -IV Rocephin 1 gram every 24 hours -IV Zithromax 500mg every 24 hours -IV fluid bolus followed by continuous Normal Saline at 100ml/hr infusion overnight -Sputum culture -Supplement oxygen -Scheduled and as needed nebulizers -IV Solumedrol 125mg now and IV 62.5 mg every 8 hours starting tomorrow -telemetry CAD/Essential hypertension - blood pressure currently normal but will need to be monitored closely with active infection. Usual medications will be continued unless blood pressure trends down. Maintenance issues - - DVT prophylaxis - enoxaparin - GI prophylaxis - IV Protonix 40mg daily - Nutrition - Healthy Heart diet - Fernandez catheter - not indicated CODE STATUS - DNR/DNI Admission justification - This patient will be admitted for inpatient services and is medically appropriate meeting medical necessity for inpatient admission as outlined in my documentation. I reasonably expect the patient will require inpatient services that span a period time over 2 midnights. I reasonably expect this patient to be discharged or transferred within 96 hours after admission to the [facility]. Disposition - anticipate discharge [facility] after the hospital stay Primary care physician - Dr. Cronin Hosptialist : Flakito Trejo M.D.
[2017-04-19] MEDS ORDERED: Nitroglycerin 0.4 MG Tab.SL SL PRN (00:47)
[2017-04-19] MEDS ORDERED: Docusate Sodium 100 MG Cap PO PRN (00:47)
[2017-04-19] MEDS ORDERED: LORazepam 2 MG/ML MDV IV PRN (00:47)
[2017-04-19] MEDS ORDERED: Sodium Chloride 0.9% 1,000 ML IV SCH (00:47)
[2017-04-19] MEDS ORDERED: Morphine 2 MG/ML Syringe IVPUSH PRN (00:47)
[2017-04-19] MEDS ORDERED: Bisacodyl 5 MG Tab PO PRN (00:47)
[2017-04-19] MEDS ORDERED: Ondansetron 4 MG Tab.DIS PO PRN (00:47)
[2017-04-19] MEDS ORDERED: DULoxetine 30 MG Cap PO SCH (00:47)
[2017-04-19] MEDS ORDERED: Azithromycin 500 MG in Sodium Chloride 0.9% 250 ML IV SCH ×2 (01:30→22:00)
[2017-04-19] MEDS: Melatonin 3 MG Tab PO SCH ×2 (01:47→21:20)
[2017-04-19] MEDS: Mirtazapine 15 MG Tab PO SCH ×2 (01:48→21:21)
[2017-04-19] MEDS ORDERED: methylPREDNISolone Sodium Succinate 125 MG/2 ML SDV IV SCH (06:00)
[2017-04-19] MEDS: Albuterol/Ipratropium 3.0-0.5 MG/3 ML Neb Soln NEB SCH ×4 (07:00→21:20)
[2017-04-19] MEDS ORDERED: Pantoprazole 40 MG Vial IVPUSH SCH (07:30)
[2017-04-19] MEDS ORDERED: Enoxaparin 40 MG/0.4 ML Syringe SUBCUT SCH (09:00)
[2017-04-19] MEDS ORDERED: Nystatin Crm 15 GM Tube TOP SCH (09:00)
[2017-04-19] MEDS ORDERED: LORazepam 0.5 MG Tab PO SCH (09:00)
[2017-04-19] MEDS: Iron PS Complex & Vit B12/FA Cap PO SCH ×2 (09:21→21:19)
[2017-04-19] MEDS: Lactobacillus Rhamnosus GG (Probiotic) Cap PO SCH (09:21)
[2017-04-19] MEDS: Furosemide 20 MG Tab PO SCH ×2 (09:21→14:08)
[2017-04-19] MEDS: Nystatin Crm 15 GM Tube TOP SCH ×2 (09:22→21:25)
[2017-04-19] MEDS: Potassium Chloride 20 MEQ Tab.ER PO SCH (09:22)
[2017-04-19] MEDS: Aspirin 81 MG Tab.EC PO SCH (09:22)
[2017-04-19] MEDS: Acetaminophen 500 MG Tab PO SCH ×3 (09:22→21:19)
[2017-04-19] MEDS: LORazepam 0.5 MG Tab PO SCH (09:30)
[2017-04-19] MEDS: Pantoprazole 40 MG Tab.CR PO SCH (09:47)
[2017-04-19] MEDS: Insulin Aspart 100 Units/ML 3 ML Pen SUBCUT SCH ×3 (12:35→21:15)
--- NOTE | 2017-04-19 12:36 | PCM.PN ---
- General Info Date of Service: 04/19/17 Functional Status: Reports: Pain Controlled, Tolerating Diet - Review of Systems General: Denies: Fever Pulmonary: Denies: Shortness of Breath Systems Review Comment:: No acute events overnight. Patient says he feels fine today and wonders why he still in the hospital. He is off supplemental oxygen at this time. He has not had any fevers. Appetite has been good. He has had some short walks around the room. No complaints of chest pain or abdominal pain. - Patient Data Vitals - Most Recent: Last Vital Signs Temp 36.4 C 04/19/17 11:36 Pulse 73 04/19/17 11:36 Resp 18 04/19/17 11:36 BP 141/69 H 04/19/17 11:36 Pulse Ox 96 04/19/17 11:36 Weight - Most Recent: 83.915 kg I&O - Last 24 Hours: Intake & Output 04/18/17 04/19/17 04/19/17 22:59 06:59 14:59 Intake Total 882 480 Output Total 400 Balance 882 80 Lab Results Last 24 Hours: Laboratory Results - last 24 hr 04/19/17 04/19/17 04/19/17 Range/Units 04:45 04:45 04:45 WBC 7.6 (4.5-11.0) K/uL RBC 4.57 (4.30-5.90) M/uL Hgb 10.0 L (12.0-15.0) g/dL Hct 34.2 L (40.0-54.0) % MCV 75 L (80-98) fL MCH 22 L (27-31) pg MCHC 29 L (32-36) % Plt Count 355 (150-400) K/uL Neut % (Auto) 92 H (36-66) % Lymph % (Auto) 6 L (24-44) % [place] % (Auto) 2 (2-6) % Eos % (Auto) 0 L (2-4) % Baso % (Auto) 0 (0-1) % Sodium 143 (140-148) mmol/L Potassium 4.4 (3.6-5.2) mmol/L Chloride 105 (100-108) mmol/L Carbon Dioxide 29 (21-32) mmol/L Anion Gap 8.9 (5.0-14.0) mmol/L BUN 24 H (7-18) mg/dL Creatinine 0.9 (0.8-1.3) mg/dL Est Cr Clr Drug Dosing 65.34 mL/min Estimated GFR (MDRD) > 60 (>60) Glucose 176 H (74-106) mg/dL Lactic Acid 1.7 (0.4-2.0) mmol/L Calcium 8.3 L (8.5-10.1) mg/dL C-Reactive Protein 6.58 H (0.0-0.3) mg/dL Urine Color Urine Appearance Urine pH (4.5-8.0) Ur Specific [place] (1.008-1.030) Urine Protein (NEGATIVE) mg/dL Urine Glucose (UA) (NEGATIVE) mg/dL Urine Ketones (NEGATIVE) mg/dL Urine Occult Blood (NEGATIVE) Urine Nitrite (NEGAITVE) Urine Bilirubin (NEGATIVE) Urine Urobilinogen (NORMAL) mg/dL Ur Leukocyte Esterase (NEGATIVE) Urine RBC (0-5) Urine WBC (0-5) Ur Epithelial Cells Amorphous Sediment Urine Bacteria Urine Mucus 04/19/17 Range/Units 08:50 WBC (4.5-11.0) K/uL RBC (4.30-5.90) M/uL Hgb (12.0-15.0) g/dL Hct (40.0-54.0) % MCV (80-98) fL MCH (27-31) pg MCHC (32-36) % Plt Count (150-400) K/uL Neut % (Auto) (36-66) % Lymph % (Auto) (24-44) % [place] % (Auto) (2-6) % Eos % (Auto) (2-4) % Baso % (Auto) (0-1) % Sodium (140-148) mmol/L Potassium (3.6-5.2) mmol/L Chloride (100-108) mmol/L Carbon Dioxide (21-32) mmol/L Anion Gap (5.0-14.0) mmol/L BUN (7-18) mg/dL Creatinine (0.8-1.3) mg/dL Est Cr Clr Drug Dosing mL/min Estimated GFR (MDRD) (>60) Glucose (74-106) mg/dL Lactic Acid (0.4-2.0) mmol/L Calcium (8.5-10.1) mg/dL C-Reactive Protein (0.0-0.3) mg/dL Urine Color Yellow Urine Appearance Clear Urine pH 7.0 (4.5-8.0) Ur Specific [place] 1.010 (1.008-1.030) Urine Protein Negative (NEGATIVE) mg/dL Urine Glucose (UA) Normal (NEGATIVE) mg/dL Urine Ketones Negative (NEGATIVE) mg/dL Urine Occult Blood Negative (NEGATIVE) Urine Nitrite Negative (NEGAITVE) Urine Bilirubin Negative (NEGATIVE) Urine Urobilinogen Normal (NORMAL) mg/dL Ur Leukocyte Esterase Negative (NEGATIVE) Urine RBC 0-5 (0-5) Urine WBC 0-5 (0-5) Ur Epithelial Cells Few Amorphous Sediment Not seen Urine Bacteria Few Urine Mucus Not seen Med Orders - Current: Current Medications Acetaminophen (Tylenol Extra Strength) 1,000 mg PO TID [facility] Last Admin: 04/19/17 09:22 Dose: 1,000 mg Albuterol (Proventil Neb Soln) 2.5 mg NEB Q4H PRN PRN Reason: Shortness Of Breath/wheezing Albuterol/Ipratropium (Duoneb 3.0-0.5 Mg/3 Ml) 3 ml NEB QIDRT [facility] Last Admin: 04/19/17 10:38 Dose: 3 ml Aspirin (Halfprin) 81 mg PO DAILY [facility] Last Admin: 04/19/17 09:22 Dose: 81 mg Azithromycin (Zithromax) 500 mg PO BEDTIME [facility] Bisacodyl (Dulcolax) 5 mg PO DAILY PRN PRN Reason: Constipation Docusate Sodium (Colace) 100 mg PO BID PRN PRN Reason: Constipation Duloxetine HCl (Cymbalta) 60 mg PO BEDTIME [facility] Last Admin: 04/19/17 01:23 Dose: Not Given Furosemide (Lasix) 20 mg PO BIDDIURETIC [facility] Last Admin: 04/19/17 09:21 Dose: 20 mg Ceftriaxone Sodium 2 gm/ (Sodium Chloride) 50 mls @ 100 mls/hr IV Q24H [facility] Insulin Aspart (Novolog) 0 unit SUBCUT QIDACANDBED [facility] PRN Reason: Protocol Lactobacillus Rhamnosus (Culturelle) 1 cap PO DAILY [facility] Last Admin: 04/19/17 09:21 Dose: 1 cap Lorazepam (Ativan) 0.25 mg PO DAILY [facility] Last Admin: 04/19/17 09:30 Dose: 0.25 mg Melatonin (Melatonin) 6 mg PO BEDTIME [facility] Last Admin: 04/19/17 01:47 Dose: 6 mg Mirtazapine (Remeron) 15 mg PO BEDTIME [facility] Last Admin: 04/19/17 01:48 Dose: 15 mg Morphine Sulfate (Morphine) 2 mg IVPUSH Q2H PRN PRN Reason: Pain (severe 7-10) Nitroglycerin (Nitrostat) 0.4 mg SL ASDIRECTED PRN PRN Reason: Chest Pain Nystatin (Nystatin Crm) 0 gm TOP BID [facility] Last Admin: 04/19/17 09:22 Dose: 15 gm Ondansetron HCl (Zofran Odt) 4 mg PO Q6H PRN PRN Reason: Nausea able to take PO Pantoprazole Sodium (Protonix) 40 mg PO ACBREAKFAST [facility] Last Admin: 04/19/17 09:47 Dose: 40 mg Polysaccharide Iron Complex (Ferrex 150 Forte) 1 cap PO BID [facility] Last Admin: 04/19/17 09:21 Dose: 1 cap Potassium Chloride (Klor-Con M20) 20 meq PO DAILY [facility] Last Admin: 04/19/17 09:22 Dose: 20 meq Discontinued Medications Acetaminophen (Tylenol) 1,000 mg PO NOW ONE Stop: 04/18/17 21:48 Last Admin: 04/19/17 01:20 Dose: Not Given Acetaminophen (Tylenol Extra Strength) 1,000 mg PO ONETIME ONE Stop: 04/18/17 21:55 Last Admin: 04/18/17 21:58 Dose: 1,000 mg Albuterol (Proventil Neb Soln) 2.5 mg NEB ONETIME ONE Stop: 04/18/17 20:24 Last Admin: 04/18/17 21:05 Dose: 2.5 mg Enoxaparin Sodium (Lovenox) 40 mg SUBCUT DAILY [facility] Furosemide (Lasix) 40 mg IVPUSH ONETIME ONE Stop: 04/18/17 21:26 Last Admin: 04/18/17 21:52 Dose: 40 mg Sodium Chloride (Normal Saline) 1,000 mls @ 150 mls/hr IV ASDIRECTED [facility] Last Admin: 04/18/17 21:05 Dose: 150 mls/hr Sodium Chloride (Normal Saline) 1,000 mls @ 500 mls/hr IV ASDIRECTED [facility] Ceftriaxone Sodium 1 gm/ (Sodium Chloride) 50 mls @ 100 mls/hr IV ONETIME ONE Stop: 04/18/17 22:26 Last Admin: 04/18/17 22:06 Dose: 100 mls/hr Azithromycin 500 mg/ Sodium (Chloride) 250 mls @ 250 mls/hr IV Q24H [facility] Last Admin: 04/19/17 01:49 Dose: 250 mls/hr Sodium Chloride (Normal Saline) 1,000 mls @ 100 mls/hr IV ASDIRECTED [facility] Last Admin: 04/19/17 09:35 Dose: 100 mls/hr Azithromycin 500 mg/ Sodium (Chloride) 250 mls @ 250 mls/hr IV Q24H [facility] Lorazepam (Ativan) 0.5 - 1 mg IV Q6H PRN PRN Reason: Nausea/Vomiting Lorazepam (Ativan) 0.5 mg PO DAILY [facility] Methylprednisolone Sodium Succinate (Solu-Medrol) 125 mg IVPUSH ONETIME ONE Stop: 04/18/17 20:24 Last Admin: 04/18/17 21:05 Dose: 125 mg Methylprednisolone Sodium Succinate (Solu-Medrol) Confirm Administered Dose 125 mg .ROUTE .STK-MED ONE Stop: 04/18/17 20:26 Last Admin: 04/18/17 21:33 Dose: Not Given Methylprednisolone Sodium Succinate (Solu-Medrol) 62.5 mg IV Q8HR [facility] Last Admin: 04/19/17 05:27 Dose: 62.5 mg - Exam Quality Assessment: No: Supplemental Oxygen General: Alert, Oriented, Cooperative, No Acute Distress Neck: Supple Lungs: Clear to Auscultation, Normal Respiratory Effort Cardiovascular: Regular Rate, Regular Rhythm Extremities: Pedal Edema Psy/Mental Status: Alert - Problem List Review Problem List Initiated/Reviewed/Updated: Yes - My Orders Last 24 Hours: My Active Orders 04/19/17 10:58 Communication Order [RC] PRN Communication Order [RC] PRN Diabetes Education [RC] Click to Edit 04/19/17 10:59 Notify Provider [RC] PRN 04/19/17 11:00 Insulin Aspart [NovoLOG] See Protocol SUBCUT QIDACANDBED 04/19/17 12:34 Convert IV to Saline Lock [OM.PC] Routine 04/19/17 16:30 GLUCOSE POC LAB TO COLLECT [POC] QIDACANDBED 04/19/17 21:00 GLUCOSE POC LAB TO COLLECT [POC] QIDACANDBED Azithromycin [Zithromax] 500 mg PO BEDTIME cefTRIAXone [Rocephin] 2 gm Sodium Chloride 0.9% [Normal Saline] 50 ml IV Q24H 04/20/17 05:00 BASIC METABOLIC PANEL,BMP [CHEM] Timed CBC W/O DIFF,HEMOGRAM [HEME] Timed (1) 04/20/17 07:30 GLUCOSE POC LAB TO COLLECT [POC] QIDACANDBED 04/20/17 08:00 predniSONE 10 mg PO WITHBREAKFAST 04/20/17 11:30 GLUCOSE POC LAB TO COLLECT [POC] QIDACANDBED 04/20/17 16:30 GLUCOSE POC LAB TO COLLECT [POC] QIDACANDBED 04/20/17 21:00 GLUCOSE POC LAB TO COLLECT [POC] QIDACANDBED 04/21/17 07:30 GLUCOSE POC LAB TO COLLECT [POC] QIDACANDBED 04/21/17 11:30 GLUCOSE POC LAB TO COLLECT [POC] QIDACANDBED 04/21/17 16:30 GLUCOSE POC LAB TO COLLECT [POC] QIDACANDBED 04/21/17 21:00 GLUCOSE POC LAB TO COLLECT [POC] QIDACANDBED 04/22/17 07:30 GLUCOSE POC LAB TO COLLECT [POC] QIDACANDBED 04/22/17 11:30 GLUCOSE POC LAB TO COLLECT [POC] QIDACANDBED 04/22/17 16:30 GLUCOSE POC LAB TO COLLECT [POC] QIDACANDBED 04/22/17 21:00 GLUCOSE POC LAB TO COLLECT [POC] QIDACANDBED 04/23/17 07:30 GLUCOSE POC LAB TO COLLECT [POC] QIDACANDBED - Plan Plan:: ASSESSMENT AND PLAN - Bronchtis with bronchospasm - history of COPD, quit smoking years ago. Dramatically improved since admission and no wheezing today. He is off supplemental oxygen. Patient seems to have some behavior issues with increased anger sense high-dose steroids were started. -Continue ceftriaxone and azithromycin -Saline lock IV -Sputum culture if able -Supplement oxygen -Scheduled and as needed nebulizers -Decrease prednisone with increased aggression (10 mg tomorrow and should be able to return to baseline of 5 mg thereafter) Dementia - seems to have some increase in behaviors with the steroids and hopefully we can taper these quick since he has improved dramatically. Family would like to minimize new medications as much as possible. -Consider Haldol if he develops worsening agitation CAD/Essential hypertension - blood pressure has been stable. Maintenance issues - - DVT prophylaxis - enoxaparin - GI prophylaxis - PPI - Nutrition - Healthy Heart diet - Fernandez catheter - not indicated Disposition - anticipate [facility] after the hospital stay, likely tomorrow Primary care physician - Dr. Mehrdad Trejo M.D.
[2017-04-19] MEDS: DULoxetine 30 MG Cap PO SCH (19:54)
[2017-04-19] MEDS: Azithromycin 250 MG Tab PO SCH (21:20)
[2017-04-19] MEDS: cefTRIAXone 2 GM in Sodium Chloride 0.9% 50 ML IV SCH (21:21)
[2017-04-20] MEDS: Albuterol 0.083% 2.5 MG/3 ML Neb Soln NEB PRN ×3 (04:02→18:00)
[2017-04-20] MEDS: Albuterol/Ipratropium 3.0-0.5 MG/3 ML Neb Soln NEB SCH ×4 (06:00→21:16)
[2017-04-20] MEDS: Furosemide 20 MG Tab PO SCH ×2 (07:31→14:08)
[2017-04-20] MEDS: Pantoprazole 40 MG Tab.CR PO SCH (07:35)
[2017-04-20] MEDS: Acetaminophen 500 MG Tab PO SCH ×4 (07:36→21:13)
[2017-04-20] MEDS: LORazepam 0.5 MG Tab PO SCH (08:52)
[2017-04-20] MEDS: predniSONE 10 MG Tab PO SCH (08:53)
[2017-04-20] MEDS: Lactobacillus Rhamnosus GG (Probiotic) Cap PO SCH (08:53)
[2017-04-20] MEDS: Aspirin 81 MG Tab.EC PO SCH (08:54)
[2017-04-20] MEDS: Potassium Chloride 20 MEQ Tab.ER PO SCH (08:54)
[2017-04-20] MEDS: Iron PS Complex & Vit B12/FA Cap PO SCH ×2 (08:54→21:12)
[2017-04-20] MEDS: Insulin Aspart 100 Units/ML 3 ML Pen SUBCUT SCH ×4 (08:55→21:27)
[2017-04-20] MEDS: Nystatin Crm 15 GM Tube TOP SCH ×2 (09:00→21:12)
--- NOTE | 2017-04-20 10:04 | CR ---
Chest 1V Frontal HISTORY: Shortness of breath COMPARISON: Chest 09/27/2015. FINDINGS: Moderate-sized hiatal hernia. Mild stable cardiomegaly. Left-sided pacemaker. No focal acut e infiltrate.
--- NOTE | 2017-04-20 12:44 | PCM.PN ---
- General Info Date of Service: 04/20/17 Subjective Update: This patient continues to experience respiratory compromise as well as agitated delirium. Respiratory status has improved from admission but is not yet back to baseline, continues to have episodes of coughing and hypoxia. I did discuss other options for management of agitation, including Haldol and Depakote, patient's daughter has refused use of these medications. She would like to continue to use the lorazepam daily and no other medications. - Review of Systems General: Reports: Weakness. Denies: Fever, Chills Pulmonary: Reports: Shortness of Breath, Cough, Wheezing. Denies: Hemoptysis Cardiovascular: Reports: Dyspnea on Exertion. Denies: Chest Pain, Palpitations , Orthopnea, PND, Edema Gastrointestinal: Reports: No Symptoms - Patient Data Vitals - Most Recent: Last Vital Signs Temp 98.6 F 04/20/17 10:34 Pulse 95 04/20/17 11:22 Resp 20 04/20/17 11:22 BP 142/76 H 04/20/17 11:22 Pulse Ox 91 L 04/20/17 11:22 Weight - Most Recent: 185 lb I&O - Last 24 Hours: Intake & Output 04/19/17 04/20/17 04/20/17 22:59 06:59 14:59 Intake Total 903 Output Total 200 100 Balance 903 -200 -100 Lab Results Last 24 Hours: Laboratory Results - last 24 hr 04/20/17 04/20/17 Range/Units 05:00 05:00 WBC 12.4 H (4.5-11.0) K/uL RBC 4.59 (4.30-5.90) M/uL Hgb 10.1 L (12.0-15.0) g/dL Hct 34.7 L (40.0-54.0) % MCV 76 L (80-98) fL MCH 22 L (27-31) pg MCHC 29 L (32-36) % Plt Count 416 H (150-400) K/uL Sodium 147 (140-148) mmol/L Potassium 4.0 (3.6-5.2) mmol/L Chloride 108 (100-108) mmol/L Carbon Dioxide 31 (21-32) mmol/L Anion Gap 8.4 (5.0-14.0) mmol/L BUN 29 H (7-18) mg/dL Creatinine 0.9 (0.8-1.3) mg/dL Est Cr Clr Drug Dosing 65.34 mL/min Estimated GFR (MDRD) > 60 (>60) Glucose 116 H (74-106) mg/dL Calcium 8.7 (8.5-10.1) mg/dL Med Orders - Current: Current Medications Acetaminophen (Tylenol Extra Strength) 1,000 mg PO TID [facility] Last Admin: 04/20/17 09:01 Dose: Not Given Albuterol (Proventil Neb Soln) 2.5 mg NEB Q4H PRN PRN Reason: Shortness Of Breath/wheezing Last Admin: 04/20/17 07:24 Dose: 2.5 mg Albuterol/Ipratropium (Duoneb 3.0-0.5 Mg/3 Ml) 3 ml NEB QIDRT [facility] Last Admin: 04/20/17 11:04 Dose: 3 ml Aspirin (Halfprin) 81 mg PO DAILY [facility] Last Admin: 04/20/17 08:54 Dose: 81 mg Azithromycin (Zithromax) 500 mg PO BEDTIME [facility] Last Admin: 04/19/17 21:20 Dose: 500 mg Bisacodyl (Dulcolax) 5 mg PO DAILY PRN PRN Reason: Constipation Docusate Sodium (Colace) 100 mg PO BID PRN PRN Reason: Constipation Duloxetine HCl (Cymbalta) 60 mg PO QPM [facility] Last Admin: 04/19/17 19:54 Dose: 60 mg Furosemide (Lasix) 20 mg PO BIDDIURETIC [facility] Last Admin: 04/20/17 07:31 Dose: 20 mg Ceftriaxone Sodium 2 gm/ (Sodium Chloride) 50 mls @ 100 mls/hr IV Q24H [facility] Last Admin: 04/19/17 21:21 Dose: 100 mls/hr Insulin Aspart (Novolog) 0 unit SUBCUT QIDACANDBED [facility] PRN Reason: Protocol Last Admin: 04/20/17 08:55 Dose: 2 units Lactobacillus Rhamnosus (Culturelle) 1 cap PO DAILY [facility] Last Admin: 04/20/17 08:53 Dose: 1 cap Lorazepam (Ativan) 0.25 mg PO DAILY [facility] Last Admin: 04/20/17 08:52 Dose: 0.25 mg Melatonin (Melatonin) 9 mg PO BEDTIME [facility] Mirtazapine (Remeron) 15 mg PO BEDTIME [facility] Last Admin: 04/19/17 21:21 Dose: 15 mg Morphine Sulfate (Morphine) 2 mg IVPUSH Q2H PRN PRN Reason: Pain (severe 7-10) Nitroglycerin (Nitrostat) 0.4 mg SL ASDIRECTED PRN PRN Reason: Chest Pain Nystatin (Nystatin Crm) 0 gm TOP BID [facility] Last Admin: 04/20/17 09:00 Dose: 1 applic Ondansetron HCl (Zofran Odt) 4 mg PO Q6H PRN PRN Reason: Nausea able to take PO Pantoprazole Sodium (Protonix) 40 mg PO ACBREAKFAST [facility] Last Admin: 04/20/17 07:35 Dose: 40 mg Polysaccharide Iron Complex (Ferrex 150 Forte) 1 cap PO BID [facility] Last Admin: 04/20/17 08:54 Dose: 1 cap Potassium Chloride (Klor-Con M20) 20 meq PO DAILY [facility] Last Admin: 04/20/17 08:54 Dose: 20 meq Prednisone (Prednisone) 10 mg PO WITHBREAKFAST [facility] Last Admin: 04/20/17 08:53 Dose: 10 mg Discontinued Medications Acetaminophen (Tylenol) 1,000 mg PO NOW ONE Stop: 04/18/17 21:48 Last Admin: 04/19/17 01:20 Dose: Not Given Acetaminophen (Tylenol Extra Strength) 1,000 mg PO ONETIME ONE Stop: 04/18/17 21:55 Last Admin: 04/18/17 21:58 Dose: 1,000 mg Albuterol (Proventil Neb Soln) 2.5 mg NEB ONETIME ONE Stop: 04/18/17 20:24 Last Admin: 04/18/17 21:05 Dose: 2.5 mg Duloxetine HCl (Cymbalta) 60 mg PO BEDTIME [facility] Last Admin: 04/19/17 01:23 Dose: Not Given Enoxaparin Sodium (Lovenox) 40 mg SUBCUT DAILY [facility] Last Admin: 04/19/17 13:06 Dose: Not Given Furosemide (Lasix) 40 mg IVPUSH ONETIME ONE Stop: 04/18/17 21:26 Last Admin: 04/18/17 21:52 Dose: 40 mg Sodium Chloride (Normal Saline) 1,000 mls @ 150 mls/hr IV ASDIRECTED [facility] Last Admin: 04/18/17 21:05 Dose: 150 mls/hr Sodium Chloride (Normal Saline) 1,000 mls @ 500 mls/hr IV ASDIRECTED [facility] Ceftriaxone Sodium 1 gm/ (Sodium Chloride) 50 mls @ 100 mls/hr IV ONETIME ONE Stop: 04/18/17 22:26 Last Admin: 04/18/17 22:06 Dose: 100 mls/hr Azithromycin 500 mg/ Sodium (Chloride) 250 mls @ 250 mls/hr IV Q24H [facility] Last Admin: 04/19/17 01:49 Dose: 250 mls/hr Sodium Chloride (Normal Saline) 1,000 mls @ 100 mls/hr IV ASDIRECTED [facility] Last Admin: 04/19/17 09:35 Dose: 100 mls/hr Azithromycin 500 mg/ Sodium (Chloride) 250 mls @ 250 mls/hr IV Q24H [facility] Lorazepam (Ativan) 0.5 - 1 mg IV Q6H PRN PRN Reason: Nausea/Vomiting Lorazepam (Ativan) 0.5 mg PO DAILY [facility] Melatonin (Melatonin) 6 mg PO BEDTIME [facility] Last Admin: 04/19/17 21:20 Dose: 6 mg Methylprednisolone Sodium Succinate (Solu-Medrol) 125 mg IVPUSH ONETIME ONE Stop: 04/18/17 20:24 Last Admin: 04/18/17 21:05 Dose: 125 mg Methylprednisolone Sodium Succinate (Solu-Medrol) Confirm Administered Dose 125 mg .ROUTE .STK-MED ONE Stop: 04/18/17 20:26 Last Admin: 04/18/17 21:33 Dose: Not Given Methylprednisolone Sodium Succinate (Solu-Medrol) 62.5 mg IV Q8HR [facility] Last Admin: 04/19/17 05:27 Dose: 62.5 mg - Exam Quality Assessment: Supplemental Oxygen, DVT Prophylaxis General: Alert, Other (Agitated) Lungs: Decreased Breath Sounds, Rhonchi, Wheezing. No: Crackles, Rales, Rub, Stridor Cardiovascular: Regular Rate, Regular Rhythm, No Murmurs GI/Abdominal Exam: Soft, Non-Tender, No Organomegaly, No Distention Extremities: Non-Tender, No Pedal Edema Skin: Warm, Dry, Intact - Problem List Review Problem List Initiated/Reviewed/Updated: Yes - My Orders Last 24 Hours: My Active Orders 04/20/17 12:36 Melatonin 9 mg PO BEDTIME 04/21/17 05:00 CBC WITH AUTO DIFF [HEME] Timed - Plan Plan:: ASSESSMENT AND PLAN - Bronchtis with bronchospasm - history of COPD, quit smoking years ago. Continues to experience some respiratory compromise with shortness of breath and cough, improved from admission -Continue ceftriaxone and azithromycin -Saline lock IV -Sputum culture if able -Supplement oxygen -Scheduled and as needed nebulizers -Prednisone 10 mg by mouth daily Dementia - continued hyperactive delirium -Continue outpatient regimen of Risperdal, melatonin, and daily lorazepam -Family refuses use of Haldol and Depakote CAD/Essential hypertension - blood pressure has been stable. Maintenance issues - - DVT prophylaxis - enoxaparin - GI prophylaxis - PPI - Nutrition - Healthy Heart diet - Fernandez catheter - not indicated Disposition - anticipate [facility] after the hospital stay, likely tomorrow Primary care physician - Dr. Cronin
[2017-04-20] MEDS: DULoxetine 30 MG Cap PO SCH (17:13)
[2017-04-20] MEDS ORDERED: Belladonna Alkaloids/Opium 16.2-30 MG Supp RECTAL PRN (19:57)
[2017-04-20] MEDS: Mirtazapine 15 MG Tab PO SCH (21:13)
[2017-04-20] MEDS: Melatonin 3 MG Tab PO SCH (21:13)
[2017-04-20] MEDS: Azithromycin 250 MG Tab PO SCH (21:14)
[2017-04-20] MEDS: cefTRIAXone 2 GM in Sodium Chloride 0.9% 50 ML IV SCH (21:28)
[2017-04-21] MEDS: Albuterol/Ipratropium 3.0-0.5 MG/3 ML Neb Soln NEB SCH ×4 (07:14→20:47)
[2017-04-21] MEDS: Pantoprazole 40 MG Tab.CR PO SCH (09:15)
[2017-04-21] MEDS: Iron PS Complex & Vit B12/FA Cap PO SCH ×2 (09:16→20:40)
[2017-04-21] MEDS: Potassium Chloride 20 MEQ Tab.ER PO SCH (09:16)
[2017-04-21] MEDS: Nystatin Crm 15 GM Tube TOP SCH ×2 (09:16→20:40)
[2017-04-21] MEDS: Furosemide 20 MG Tab PO SCH ×2 (09:16→13:51)
[2017-04-21] MEDS: Lactobacillus Rhamnosus GG (Probiotic) Cap PO SCH ×2 (09:16→20:40)
[2017-04-21] MEDS: Aspirin 81 MG Tab.EC PO SCH (09:16)
[2017-04-21] MEDS: predniSONE 10 MG Tab PO SCH (09:17)
[2017-04-21] MEDS: Acetaminophen 500 MG Tab PO SCH ×3 (09:17→20:40)
[2017-04-21] MEDS: LORazepam 0.5 MG Tab PO SCH (09:21)
[2017-04-21] MEDS: Insulin Aspart 100 Units/ML 3 ML Pen SUBCUT SCH ×4 (10:54→21:01)
[2017-04-21] MEDS: DULoxetine 30 MG Cap PO SCH (16:03)
--- NOTE | 2017-04-21 16:11 | PCM.PN ---
- General Info Date of Service: 04/21/17 Subjective Update: Mr. Vanegas shown moderate improvement over the last 24 hours with less shortness of breath and cough. He has not had significant agitation or delirium from baseline. Vital signs have been stable and he has remained afebrile. Functional Status: Reports: Tolerating Diet, Urinating - Review of Systems General: Reports: Weakness. Denies: Fever, Chills Pulmonary: Reports: Shortness of Breath, Cough, Wheezing. Denies: Sputum Cardiovascular: Reports: Dyspnea on Exertion. Denies: Chest Pain, Palpitations , Orthopnea, PND, Edema, Lightheadedness Gastrointestinal: Reports: No Symptoms - Patient Data Vitals - Most Recent: Last Vital Signs Temp 97.3 F 04/21/17 13:58 Pulse 82 04/21/17 13:58 Resp 18 04/21/17 13:58 BP 166/96 H 04/21/17 13:58 Pulse Ox 100 04/21/17 13:58 Weight - Most Recent: 185 lb 0.014 oz I&O - Last 24 Hours: Intake & Output 04/21/17 04/21/17 04/21/17 06:59 14:59 22:59 Intake Total 240 Output Total 150 200 Balance -150 40 Lab Results Last 24 Hours: Laboratory Results - last 24 hr 04/21/17 Range/Units 05:00 WBC 10.9 (4.5-11.0) K/uL RBC 4.77 (4.30-5.90) M/uL Hgb 10.4 L (12.0-15.0) g/dL Hct 35.8 L (40.0-54.0) % MCV 75 L (80-98) fL MCH 22 L (27-31) pg MCHC 29 L (32-36) % Plt Count 392 (150-400) K/uL Neut % (Auto) 81 H (36-66) % Lymph % (Auto) 11 L (24-44) % [place] % (Auto) 8 H (2-6) % Eos % (Auto) 1 L (2-4) % Baso % (Auto) 0 (0-1) % Med Orders - Current: Current Medications Acetaminophen (Tylenol Extra Strength) 1,000 mg PO TID [facility] Last Admin: 04/21/17 13:51 Dose: 1,000 mg Albuterol (Proventil Neb Soln) 2.5 mg NEB Q4H PRN PRN Reason: Shortness Of Breath/wheezing Last Admin: 04/20/17 18:00 Dose: 2.5 mg Albuterol/Ipratropium (Duoneb 3.0-0.5 Mg/3 Ml) 3 ml NEB QIDRT [facility] Last Admin: 04/21/17 15:55 Dose: 3 ml Aspirin (Halfprin) 81 mg PO DAILY [facility] Last Admin: 04/21/17 09:16 Dose: 81 mg Bisacodyl (Dulcolax) 5 mg PO DAILY PRN PRN Reason: Constipation Docusate Sodium (Colace) 100 mg PO BID PRN PRN Reason: Constipation Duloxetine HCl (Cymbalta) 60 mg PO QPM [facility] Last Admin: 04/21/17 16:03 Dose: 60 mg Furosemide (Lasix) 20 mg PO BIDDIURETIC [facility] Last Admin: 04/21/17 13:51 Dose: 20 mg Ceftriaxone Sodium 2 gm/ (Sodium Chloride) 50 mls @ 100 mls/hr IV Q24H [facility] Last Admin: 04/20/17 21:28 Dose: 100 mls/hr Insulin Aspart (Novolog) 0 unit SUBCUT QIDACANDBED [facility] PRN Reason: Protocol Last Admin: 04/21/17 13:49 Dose: 2 units Lactobacillus Rhamnosus (Culturelle) 2 cap PO BID [facility] Lorazepam (Ativan) 0.25 mg PO DAILY [facility] Last Admin: 04/21/17 09:21 Dose: 0.25 mg Melatonin (Melatonin) 9 mg PO BEDTIME [facility] Last Admin: 04/20/17 21:13 Dose: 9 mg Mirtazapine (Remeron) 15 mg PO BEDTIME [facility] Last Admin: 04/20/17 21:13 Dose: 15 mg Morphine Sulfate (Morphine) 2 mg IVPUSH Q2H PRN PRN Reason: Pain (severe 7-10) Nitroglycerin (Nitrostat) 0.4 mg SL ASDIRECTED PRN PRN Reason: Chest Pain Nystatin (Nystatin Crm) 0 gm TOP BID [facility] Last Admin: 04/21/17 09:16 Dose: 1 applic Ondansetron HCl (Zofran Odt) 4 mg PO Q6H PRN PRN Reason: Nausea able to take PO Pantoprazole Sodium (Protonix) 40 mg PO ACBREAKFAST [facility] Last Admin: 04/21/17 09:15 Dose: Not Given Polysaccharide Iron Complex (Ferrex 150 Forte) 1 cap PO BID [facility] Last Admin: 04/21/17 09:16 Dose: 1 cap Potassium Chloride (Klor-Con M20) 20 meq PO DAILY [facility] Last Admin: 04/21/17 09:16 Dose: 20 meq Prednisone (Prednisone) 10 mg PO WITHBREAKFAST [facility] Last Admin: 04/21/17 09:17 Dose: 10 mg Discontinued Medications Acetaminophen (Tylenol) 1,000 mg PO NOW ONE Stop: 04/18/17 21:48 Last Admin: 04/19/17 01:20 Dose: Not Given Acetaminophen (Tylenol Extra Strength) 1,000 mg PO ONETIME ONE Stop: 04/18/17 21:55 Last Admin: 04/18/17 21:58 Dose: 1,000 mg Albuterol (Proventil Neb Soln) 2.5 mg NEB ONETIME ONE Stop: 04/18/17 20:24 Last Admin: 04/18/17 21:05 Dose: 2.5 mg Azithromycin (Zithromax) 500 mg PO BEDTIME [facility] Last Admin: 04/20/17 21:14 Dose: 500 mg Duloxetine HCl (Cymbalta) 60 mg PO BEDTIME [facility] Last Admin: 04/19/17 01:23 Dose: Not Given Enoxaparin Sodium (Lovenox) 40 mg SUBCUT DAILY [facility] Last Admin: 04/19/17 13:06 Dose: Not Given Furosemide (Lasix) 40 mg IVPUSH ONETIME ONE Stop: 04/18/17 21:26 Last Admin: 04/18/17 21:52 Dose: 40 mg Sodium Chloride (Normal Saline) 1,000 mls @ 150 mls/hr IV ASDIRECTED [facility] Last Admin: 04/18/17 21:05 Dose: 150 mls/hr Sodium Chloride (Normal Saline) 1,000 mls @ 500 mls/hr IV ASDIRECTED [facility] Ceftriaxone Sodium 1 gm/ (Sodium Chloride) 50 mls @ 100 mls/hr IV ONETIME ONE Stop: 04/18/17 22:26 Last Admin: 04/18/17 22:06 Dose: 100 mls/hr Azithromycin 500 mg/ Sodium (Chloride) 250 mls @ 250 mls/hr IV Q24H [facility] Last Admin: 04/19/17 01:49 Dose: 250 mls/hr Sodium Chloride (Normal Saline) 1,000 mls @ 100 mls/hr IV ASDIRECTED [facility] Last Admin: 04/19/17 09:35 Dose: 100 mls/hr Azithromycin 500 mg/ Sodium (Chloride) 250 mls @ 250 mls/hr IV Q24H [facility] Lactobacillus Rhamnosus (Culturelle) 1 cap PO DAILY [facility] Last Admin: 04/21/17 09:16 Dose: 1 cap Lorazepam (Ativan) 0.5 - 1 mg IV Q6H PRN PRN Reason: Nausea/Vomiting Lorazepam (Ativan) 0.5 mg PO DAILY [facility] Melatonin (Melatonin) 6 mg PO BEDTIME [facility] Last Admin: 04/19/17 21:20 Dose: 6 mg Methylprednisolone Sodium Succinate (Solu-Medrol) 125 mg IVPUSH ONETIME ONE Stop: 04/18/17 20:24 Last Admin: 04/18/17 21:05 Dose: 125 mg Methylprednisolone Sodium Succinate (Solu-Medrol) Confirm Administered Dose 125 mg .ROUTE .STK-MED ONE Stop: 04/18/17 20:26 Last Admin: 04/18/17 21:33 Dose: Not Given Methylprednisolone Sodium Succinate (Solu-Medrol) 62.5 mg IV Q8HR [facility] Last Admin: 04/19/17 05:27 Dose: 62.5 mg - Exam Quality Assessment: DVT Prophylaxis General: Alert, Cooperative, No Acute Distress Lungs: Decreased Breath Sounds, Rhonchi, Wheezing. No: Crackles, Rales, Rub, Stridor Cardiovascular: Regular Rate, Regular Rhythm, No Murmurs GI/Abdominal Exam: Soft, Non-Tender, No Organomegaly, No Distention Extremities: Non-Tender, No Pedal Edema Skin: Warm, Dry, Intact - Problem List Review Problem List Initiated/Reviewed/Updated: Yes - My Orders Last 24 Hours: My Active Orders 04/20/17 21:00 Melatonin 9 mg PO BEDTIME 04/21/17 21:00 Lactobacillus Rhamnosus GG [Culturelle] 2 cap PO BID - Plan Plan:: ASSESSMENT AND PLAN - Bronchtis with bronchospasm - improved over the past 24 hours with less shortness of breath and cough -Continue ceftriaxone -Saline lock IV -Sputum culture if able -Supplement oxygen -Scheduled and as needed nebulizers -Prednisone 10 mg by mouth daily Dementia - delirium has significantly improved over the past 24 hours -Continue outpatient regimen of Remeron, melatonin, and daily lorazepam -Family refuses use of Haldol and Depakote CAD/Essential hypertension - blood pressure has been stable. Maintenance issues - - DVT prophylaxis - enoxaparin - GI prophylaxis - PPI - Nutrition - Healthy Heart diet - Fernandez catheter - not indicated Disposition - anticipate discharge [facility] after the hospital stay, likely tomorrow Primary care physician - Dr. Cronin
[2017-04-21] MEDS: Mirtazapine 15 MG Tab PO SCH (20:40)
[2017-04-21] MEDS: Melatonin 3 MG Tab PO SCH (20:40)
[2017-04-21] MEDS: cefTRIAXone 2 GM in Sodium Chloride 0.9% 50 ML IV SCH (20:47)
[2017-04-22] MEDS: Albuterol/Ipratropium 3.0-0.5 MG/3 ML Neb Soln NEB SCH ×2 (07:18→10:37)
[2017-04-22] MEDS: Insulin Aspart 100 Units/ML 3 ML Pen SUBCUT SCH ×2 (09:36→12:18)
[2017-04-22] MEDS: Aspirin 81 MG Tab.EC PO SCH (09:39)
[2017-04-22] MEDS: Furosemide 20 MG Tab PO SCH (09:39)
[2017-04-22] MEDS: Potassium Chloride 20 MEQ Tab.ER PO SCH (09:39)
[2017-04-22] MEDS: Pantoprazole 40 MG Tab.CR PO SCH (09:39)
[2017-04-22] MEDS: Lactobacillus Rhamnosus GG (Probiotic) Cap PO SCH (09:40)
[2017-04-22] MEDS: Nystatin Crm 15 GM Tube TOP SCH (09:40)
[2017-04-22] MEDS: Acetaminophen 500 MG Tab PO SCH (09:40)
[2017-04-22] MEDS: predniSONE 10 MG Tab PO SCH (09:40)
[2017-04-22] MEDS: Iron PS Complex & Vit B12/FA Cap PO SCH (09:40)
[2017-04-22] MEDS: LORazepam 0.5 MG Tab PO SCH (09:56)
[2017-04-22 10:45] VITALS: BP 166/65
--- NOTE | 2017-04-22 12:20 | PCM.DCSUM1 ---
Discharge Summary - Hospital Course Brief History: Mr. Vanegas is an 81-year-old gentleman who is admitted through the emergency department with increased shortness of breath, cough, and hypoxia. There was no evidence of pneumonia, findings were felt to be secondary to bronchitis with COPD exacerbation. - Discharge Data Discharge Date: 04/22/17 Discharge Disposition: Home, Self-Care 01 Condition: Fair - Discharge Diagnosis/Problem(s) (1) Bronchitis SNOMED Code(s): 79449027 ICD Code: J40 - BRONCHITIS, NOT SPECIFIED ACUTE OR CHRONIC Status: Acute Priority: High Current Visit: Yes (2) COPD exacerbation SNOMED Code(s): 051023583589922 ICD Code: J44.1 - CHRONIC OBSTRUCTIVE PULMONARY DISEASE W (ACUTE) EXACERBATION Status: Acute Current Visit: Yes (3) Hypoxia SNOMED Code(s): 507041564 ICD Code: R09.02 - HYPOXEMIA Status: Acute Current Visit: Yes - Patient Summary/Data Consults: Consultations 04/19/17 23:53 OT Evaluation and Treatment [CONS] Routine Please Evaluate and Treat. OT Reason for Consult: Discharge Planning This query below is only for informational purposes and is not editable. Hospital Course: Mr. Vanegas is an 81-year-old gentleman who developed symptoms of weakness, cough, shortness of breath prior to admission. He was seen and evaluated in the emergency department, chest x-ray showed no evidence of infiltrate or pneumonia. He was felt to have probable bronchitis causing COPD exacerbation and hypoxia. On admission he was given IV fluids for hydration as well as IV antibiotic therapy with ceftriaxone. IV Solu-Medrol was used because of evidence of bronchospasm. By the following morning he was feeling somewhat better, although agitated with hyperactive delirium associated with his underlying dementia. IV Solu-Medrol was felt to be contributing to delirium as well as significant elevations in glucose levels was discontinued and he was placed on oral prednisone. By the morning of discharge he was feeling significant improved although not yet back to baseline. There was some persistent cough and ongoing hypoxia. He was qualified for home oxygen and will be discharged on 2 L/m via nasal cannula. He will receive an additional 3 days of oral antibiotics therapy with Omnicef and will go back to his usual prednisone dose of 5 mg daily. Nebulizer therapy with DuoNeb's will be prescribed a home nebulizer will be arranged for use at the assisted living facility. Activity will be as tolerated and he will resume his usual diet. Follow-up appointment will be scheduled with his primary care provider within one week. - Patient Instructions Diet: Diabetic Diet Activity: As Tolerated Other/Special Instructions: Please schedule follow-up appointment with primary care provider within one week. Discharge with home oxygen 2 L/m via nasal cannula. Arrange for nebulizer to use at assisted living facility. - Discharge Plan Prescriptions/Med Rec: Albuterol/Ipratropium [DuoNeb 3.0-0.5 MG/3 ML] 3 ml NEB QIDRT PRN #60 neb PRN Reason: Dyspnea Cefdinir [Omnicef] 300 mg PO BID #6 cap Lactobacillus Rhamnosus GG [Culturelle] 1 cap PO BID #60 cap Home Medications: Home Meds Aspirin [Adult Low Dose Aspirin EC] 81 mg PO DAILY 11/09/13 [History] Nitroglycerin 0.4 mg SL ASDIRECTED PRN 10/27/15 [History] *[employer] Collagen Gelatin 1 dose PO TID 02/25/16 [History] Acetaminophen 1,000 mg PO TID 02/25/16 [History] Acetaminophen [Mapap] 500 mg PO TID 03/13/17 [History] DULoxetine [Cymbalta] 60 mg PO DAILY 03/13/17 [History] Furosemide [Lasix] 20 mg PO BID 03/13/17 [History] LORazepam [Ativan] 0.25 mg PO DAILY 03/13/17 [History] Melatonin 6 mg PO BEDTIME 03/13/17 [History] Mirtazapine 15 mg PO DAILY 03/13/17 [History] Nystatin [Nystatin Crm] 15 gm TOP BID 03/13/17 [History] [place]-3/DHA/Epa/Fish Oil [Fish Oil 1,000 mg Softgel] 1 each PO DAILY 03/13/17 [ History] [place]-3/DHA/Epa/Fish Oil [Fish Oil 1,400 MG Softgel] 1,500 mg PO DAILY 03/13/17 [History] Potassium 20 meq PO DAILY 03/13/17 [History] Prednisone [IJD: Prednisone] 5 mg PO DAILY 03/13/17 [History] Aspirin [Adult Low Dose Aspirin EC] 81 mg PO DAILY 04/18/17 [History] Iron PS Complex & Vit B12/FA [Ferrex 150 Forte] 1 cap PO BID 04/18/17 [History] L.acidoph,Paracasei, B.lactis [Probiotic] 1 cap PO DAILY 04/18/17 [History] Mineral Oil/Pet Hy-Phl Oint [Aquaphor Healing Ointment] 1 applic TOP BID [History] Albuterol/Ipratropium [DuoNeb 3.0-0.5 MG/3 ML] 3 ml NEB QIDRT PRN #60 neb [Rx] Cefdinir [Omnicef] 300 mg PO BID #6 cap 04/22/17 [Rx] Lactobacillus Rhamnosus GG [Culturelle] 1 cap PO BID #60 cap 04/22/17 [Rx] Referrals: Negrito Cronin MD [Primary Care Provider] - - Patient Data Vitals - Most Recent: Last Vital Signs Temp 96.8 F 04/22/17 10:43 Pulse 77 04/22/17 10:43 Resp 19 04/22/17 10:43 BP 166/65 H 04/22/17 10:43 Pulse Ox 94 L 04/22/17 10:43 Weight - Most Recent: 185 lb 0.014 oz I&O - Last 24 hours: Intake & Output 04/21/17 04/22/17 04/22/17 22:59 06:59 14:59 Intake Total 290 Output Total 350 Balance 290 -350 Med Orders - Current: Current Medications Acetaminophen (Tylenol Extra Strength) 1,000 mg PO TID [facility] Last Admin: 04/22/17 09:40 Dose: 1,000 mg Albuterol (Proventil Neb Soln) 2.5 mg NEB Q4H PRN PRN Reason: Shortness Of Breath/wheezing Last Admin: 04/20/17 18:00 Dose: 2.5 mg Albuterol/Ipratropium (Duoneb 3.0-0.5 Mg/3 Ml) 3 ml NEB QIDRT [facility] Last Admin: 04/22/17 10:37 Dose: 3 ml Aspirin (Halfprin) 81 mg PO DAILY [facility] Last Admin: 04/22/17 09:39 Dose: 81 mg Bisacodyl (Dulcolax) 5 mg PO DAILY PRN PRN Reason: Constipation Docusate Sodium (Colace) 100 mg PO BID PRN PRN Reason: Constipation Duloxetine HCl (Cymbalta) 60 mg PO QPM [facility] Last Admin: 04/21/17 16:03 Dose: 60 mg Furosemide (Lasix) 20 mg PO BIDDIURETIC [facility] Last Admin: 04/22/17 09:39 Dose: 20 mg Ceftriaxone Sodium 2 gm/ (Sodium Chloride) 50 mls @ 100 mls/hr IV Q24H [facility] Last Admin: 04/21/17 20:47 Dose: 100 mls/hr Insulin Aspart (Novolog) 0 unit SUBCUT QIDACANDBED [facility] PRN Reason: Protocol Last Admin: 04/22/17 09:36 Dose: Not Given Lactobacillus Rhamnosus (Culturelle) 2 cap PO BID [facility] Last Admin: 04/22/17 09:40 Dose: 2 cap Lorazepam (Ativan) 0.25 mg PO DAILY [facility] Last Admin: 04/22/17 09:56 Dose: 0.25 mg Melatonin (Melatonin) 9 mg PO BEDTIME [facility] Last Admin: 04/21/17 20:40 Dose: 9 mg Mirtazapine (Remeron) 15 mg PO BEDTIME [facility] Last Admin: 04/21/17 20:40 Dose: 15 mg Morphine Sulfate (Morphine) 2 mg IVPUSH Q2H PRN PRN Reason: Pain (severe 7-10) Nitroglycerin (Nitrostat) 0.4 mg SL ASDIRECTED PRN PRN Reason: Chest Pain Nystatin (Nystatin Crm) 0 gm TOP BID [facility] Last Admin: 04/22/17 09:40 Dose: 1 applic Ondansetron HCl (Zofran Odt) 4 mg PO Q6H PRN PRN Reason: Nausea able to take PO Pantoprazole Sodium (Protonix) 40 mg PO ACBREAKFAST [facility] Last Admin: 04/22/17 09:39 Dose: 40 mg Polysaccharide Iron Complex (Ferrex 150 Forte) 1 cap PO BID [facility] Last Admin: 04/22/17 09:40 Dose: 1 cap Potassium Chloride (Klor-Con M20) 20 meq PO DAILY [facility] Last Admin: 04/22/17 09:39 Dose: 20 meq Prednisone (Prednisone) 10 mg PO WITHBREAKFAST [facility] Last Admin: 04/22/17 09:40 Dose: 10 mg Discontinued Medications Acetaminophen (Tylenol) 1,000 mg PO NOW ONE Stop: 01/06/18 21:48 Last Admin: 04/19/17 01:20 Dose: Not Given Acetaminophen (Tylenol Extra Strength) 1,000 mg PO ONETIME ONE Stop: 04/18/17 21:55 Last Admin: 04/18/17 21:58 Dose: 1,000 mg Albuterol (Proventil Neb Soln) 2.5 mg NEB ONETIME ONE Stop: 04/18/17 20:24 Last Admin: 04/18/17 21:05 Dose: 2.5 mg Azithromycin (Zithromax) 500 mg PO BEDTIME [facility] Last Admin: 04/20/17 21:14 Dose: 500 mg Duloxetine HCl (Cymbalta) 60 mg PO BEDTIME [facility] Last Admin: 04/19/17 01:23 Dose: Not Given Enoxaparin Sodium (Lovenox) 40 mg SUBCUT DAILY [facility] Last Admin: 04/19/17 13:06 Dose: Not Given Furosemide (Lasix) 40 mg IVPUSH ONETIME ONE Stop: 04/18/17 21:26 Last Admin: 04/18/17 21:52 Dose: 40 mg Sodium Chloride (Normal Saline) 1,000 mls @ 150 mls/hr IV ASDIRECTED [facility] Last Admin: 04/18/17 21:05 Dose: 150 mls/hr Sodium Chloride (Normal Saline) 1,000 mls @ 500 mls/hr IV ASDIRECTED [facility] Ceftriaxone Sodium 1 gm/ (Sodium Chloride) 50 mls @ 100 mls/hr IV ONETIME ONE Stop: 04/18/17 22:26 Last Admin: 04/18/17 22:06 Dose: 100 mls/hr Azithromycin 500 mg/ Sodium (Chloride) 250 mls @ 250 mls/hr IV Q24H [facility] Last Admin: 04/19/17 01:49 Dose: 250 mls/hr Sodium Chloride (Normal Saline) 1,000 mls @ 100 mls/hr IV ASDIRECTED [facility] Last Admin: 04/19/17 09:35 Dose: 100 mls/hr Azithromycin 500 mg/ Sodium (Chloride) 250 mls @ 250 mls/hr IV Q24H [facility] Lactobacillus Rhamnosus (Culturelle) 1 cap PO DAILY [facility] Last Admin: 04/21/17 09:16 Dose: 1 cap Lorazepam (Ativan) 0.5 - 1 mg IV Q6H PRN PRN Reason: Nausea/Vomiting Lorazepam (Ativan) 0.5 mg PO DAILY [facility] Melatonin (Melatonin) 6 mg PO BEDTIME [facility] Last Admin: 04/19/17 21:20 Dose: 6 mg Methylprednisolone Sodium Succinate (Solu-Medrol) 125 mg IVPUSH ONETIME ONE Stop: 04/18/17 20:24 Last Admin: 04/18/17 21:05 Dose: 125 mg Methylprednisolone Sodium Succinate (Solu-Medrol) Confirm Administered Dose 125 mg .ROUTE .STK-MED ONE Stop: 04/18/17 20:26 Last Admin: 04/18/17 21:33 Dose: Not Given Methylprednisolone Sodium Succinate (Solu-Medrol) 62.5 mg IV Q8HR [facility] Last Admin: 04/19/17 05:27 Dose: 62.5 mg *Q Meaningful Use (DIS) - VTE *Q VTE Criteria *Q: - Stroke *Q Stroke Criteria *Q: - AMI *Q AMI Criteria *Q:
== END 2017-04-22 14:45 | disposition home or self-care (01) | DRG 191 ==
LOC: JP.ED 20:19 → JP.MS 23:52
PROVIDERS: ADMIT Internal Medicine; ATTEND Hospitalist
DX: J44.1 Chronic obstructive pulmonary disease with (acute) exacerbation (principal); F05 Delirium due to known physiological condition; J40 Bronchitis, not specified as acute or chronic; R09.02 Hypoxemia; I10 Essential (primary) hypertension; R79.89 Other specified abnormal findings of blood chemistry; Z66 Do not resuscitate; R06.02 Shortness of breath; R05 Cough; I25.10 Atherosclerotic heart disease of native coronary artery without angina pectoris; F03.90 Unspecified dementia, unspecified severity, without behavioral disturbance, psychotic disturbance, mood disturbance, and anxiety; M19.90 Unspecified osteoarthritis, unspecified site; Z95.5 Presence of coronary angioplasty implant and graft; Z87.891 Personal history of nicotine dependence; Z79.82 Long term (current) use of aspirin; Z79.52 Long term (current) use of systemic steroids; Z88.5 Allergy status to narcotic agent; Z88.8 Allergy status to other drugs, medicaments and biological substances; Z91.018 Allergy to other foods
CPT/HCPCS: 36415; 36600; 71045 ×2; 80053; 82803; 83605; 83880; 85025; 87804 ×2; 96361; 96365; 96367; 96375; 99285; A9270; J0696; J1940; J2930; J7040; J7050; 80048; 81001; 82962; 85027; 86140; 94640; 97165-GO; 99284; J0456; J7620

== ENCOUNTER 2017-10-10 16:29 | Emergency (ER) | payer MEDICARE, BC ==
[2017-10-10 16:33] VITALS: BP 159/85
--- NOTE | 2017-10-10 17:39 | EDM.PDOC ---
ED HPI GENERAL MEDICAL PROBLEM - General Chief Complaint: Gastrointestinal Problem Stated Complaint: GI BLEED Time Seen by Provider: 10/10/17 16:45 Source of Information: Reports: EMS, Family History Limitations: Reports: Uncooperative (Patient has dementia, does not want to be here and will not answer questions) - History of Present Illness INITIAL COMMENTS - FREE TEXT/NARRATIVE: 81-year-old male developed rectal bleeding over the past 12 hours. Initially it was surface and bright red, it is now become more worrisome with clots. The patient himself denies any symptoms. His family just wants to make sure he is stable, they don't want a lot of intervention. His hemoglobin was 12.9 2 weeks ago checked for another reason. Onset: Sudden Duration: Hour(s): (Symptoms and at present for about 12 hours) Severity: Mild Associated Symptoms: Reports: Confusion. Denies: Nausea/Vomiting, Shortness of Breath (Chronic and unchanged) - Related Data Allergies Allergy/AdvReac Type Severity Reaction Status Date / Time kiwi Allergy Severe Anaphylactic Verified 10/10/17 16:33 Shock hydrocodone Allergy Other Verified 10/10/17 16:33 [place] [employer] AdvReac Other Verified 10/10/17 16:33 simvastatin AdvReac Muscle Verified 10/10/17 16:33 Aches tomato AdvReac Other Verified 10/10/17 16:33 Home Meds: Home Meds Aspirin [Adult Low Dose Aspirin EC] 81 mg PO DAILY 11/09/13 [History] Nitroglycerin 0.4 mg SL ASDIRECTED PRN 10/27/15 [History] *[place] Collagen Gelatin 1 dose PO TID 02/25/16 [History] Acetaminophen 1,000 mg PO TID 02/25/16 [History] Acetaminophen [Mapap] 500 mg PO TID 03/13/17 [History] DULoxetine [Cymbalta] 60 mg PO DAILY 03/13/17 [History] Furosemide [Lasix] 20 mg PO BID 03/13/17 [History] LORazepam [Ativan] 0.25 mg PO DAILY 03/13/17 [History] Melatonin 6 mg PO BEDTIME 03/13/17 [History] Mirtazapine 15 mg PO DAILY 03/13/17 [History] Nystatin [Nystatin Crm] 15 gm TOP BID 03/13/17 [History] [place]-3/DHA/Epa/Fish Oil [Fish Oil 1,000 mg Softgel] 1 each PO DAILY 03/13/17 [ History] [place]-3/DHA/Epa/Fish Oil [Fish Oil 1,400 MG Softgel] 1,500 mg PO DAILY 03/13/17 [History] Potassium 20 meq PO DAILY 03/13/17 [History] Prednisone [IJD: Prednisone] 5 mg PO DAILY 03/13/17 [History] Aspirin [Adult Low Dose Aspirin EC] 81 mg PO DAILY 04/18/17 [History] Iron PS Complex & Vit B12/FA [Ferrex 150 Forte] 1 cap PO BID 04/18/17 [History] L.acidoph,Paracasei, B.lactis [Probiotic] 1 cap PO DAILY 04/18/17 [History] Mineral Oil/Pet Hy-Phl Oint [Aquaphor Healing Ointment] 1 applic TOP BID [History] Albuterol/Ipratropium [DuoNeb 3.0-0.5 MG/3 ML] 3 ml NEB QIDRT PRN #60 neb [Rx] Cefdinir [Omnicef] 300 mg PO BID #6 cap 04/22/17 [Rx] Lactobacillus Rhamnosus GG [Culturelle] 1 cap PO BID #60 cap 04/22/17 [Rx] Past Medical History HEENT History: Reports: Cataract Cardiovascular History: Reports: CAD, Stents, Other (See Below) 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 Genitourinary History: Reports: Urinary Incontinence Musculoskeletal History: Reports: Osteoarthritis, RA Neurological History: Reports: Neuropathy, Peripheral Psychiatric History: Reports: Dementia Hematologic History: Reports: Anticoagulation Therapy Immunologic History: Reports: Other (See Below) Other Immunologic History: d/t medications Dermatologic History: Reports: Eczema - Infectious Disease History Infectious Disease History: Reports: Chicken Pox, Measles, Mumps - Past Surgical History HEENT Surgical History: Reports: None GI Surgical History: Reports: Hernia Repair/Other Social & Family History - Family History Family Medical History: Noncontributory - Tobacco Use Smoking Status *Q: Never Smoker - Caffeine Use Caffeine Use: Reports: None ED ROS GENERAL - Review of Systems Review Of Systems: See Below Constitutional: Denies: Fever Respiratory: Denies: Shortness of Breath GI/Abdominal: Denies: Abdominal Pain, Nausea, Vomiting Neurological: Denies: Headache ED EXAM, GENERAL - Physical Exam Exam: See Below Exam Limited By: No Limitations General Appearance: Alert, No Apparent Distress Respiratory/Chest: No Respiratory Distress, Lungs Clear GI/Abdominal: Soft, Non-Tender Rectal (Males) Exam: Other (Rectal exam was deferred) Neurological: Alert Skin Exam: Warm, Dry Course - Vital Signs Last Recorded V/S: Last Vital Signs Temp 98.6 F 10/10/17 16:38 Pulse 70 10/10/17 16:38 Resp 16 10/10/17 16:38 BP 159/85 H 10/10/17 16:38 Pulse Ox 93 L 10/10/17 16:38 - Orders/Labs/Meds Labs: Laboratory Tests 10/10/17 Range/Units 17:00 WBC 8.4 (4.5-11.0) K/uL RBC 4.86 (4.30-5.90) M/uL Hgb 12.7 (12.0-15.0) g/dL Hct 41.2 (40.0-54.0) % MCV 85 (80-98) fL MCH 26 L (27-31) pg MCHC 31 L (32-36) % Plt Count 300 (150-400) K/uL Neut % (Auto) 73 H (36-66) % Lymph % (Auto) 13 L (24-44) % [place] % (Auto) 11 H (2-6) % Eos % (Auto) 3 (2-4) % Baso % (Auto) 1 (0-1) % - Re-Assessments/Exams Free Text/Narrative Re-Assessment/Exam: 10/10/17 17:38 CBC was drawn, his hemoglobin is 12.7 and he had no additional bleeding while in the emergency room. Family was comfortable taking him back and we will recheck him in the next 24-48 hours if bleeding persists. Departure - Departure Time of Disposition: 18:23 Disposition: DC/[facility]fer to [facility] Condition: Good Clinical Impression: Rectal bleeding - Discharge Information Instructions: Rectal Bleeding Referrals: PCP,None [Primary Care Provider] - Forms: ED Department Discharge Care Plan Goals: Continue current medications. Try Anusol suppositories if patient will allow if bleeding persists. Recheck hemoglobin in 2-4 days if no improvement, or return anytime if worsening or concerns.
== END 2017-10-10 18:23 ==
LOC: JP.ED 16:29
DX: K92.2 Gastrointestinal hemorrhage, unspecified (principal); M19.90 Unspecified osteoarthritis, unspecified site; Z79.01 Long term (current) use of anticoagulants; Z79.899 Other long term (current) drug therapy; Z79.82 Long term (current) use of aspirin; Z91.018 Allergy to other foods; Z88.8 Allergy status to other drugs, medicaments and biological substances; Z88.5 Allergy status to narcotic agent
CPT/HCPCS: 36415; 85025; 99285

== ENCOUNTER 2018-07-07 00:40 | Observation (INO) | payer MEDICARE, BC ==
--- NOTE | 2018-07-07 01:21 | EDM.PDOC ---
ED HPI GENERAL MEDICAL PROBLEM - General Chief Complaint: Respiratory Problem Stated Complaint: [facility] Time Seen by Provider: 07/07/18 01:14 Source of Information: Reports: Patient, Family, RN Notes Reviewed History Limitations: Reports: Physical Impairment - History of Present Illness INITIAL COMMENTS - FREE TEXT/NARRATIVE: 82-year-old gentleman presents from senior living with complaint of shortness of breath via EMS services, family members are present states 30 minutes prior was feeling fine and then sudden shortness of breath became hypoxic was given 1 neb treatment in ambulance, now feels significantly better - Related Data Allergies Allergy/AdvReac Type Severity Reaction Status Date / Time kiwi Allergy Severe Anaphylactic Verified 07/07/18 00:46 Shock hydrocodone Allergy Other Verified 07/07/18 00:46 [place] And Derivatives AdvReac Other Verified 07/07/18 00:46 simvastatin AdvReac Muscle Verified 07/07/18 00:46 Aches tomato AdvReac Other Verified 07/07/18 00:46 Home Meds: Home Meds Nitroglycerin 0.4 mg SL ASDIRECTED PRN 10/27/15 [History] *[place] Collagen Gelatin 1 dose PO TID 02/25/16 [History] Acetaminophen [Mapap] 500 mg PO TID 03/13/17 [History] Furosemide [Lasix] 20 mg PO BID 03/13/17 [History] Melatonin 6 mg PO BEDTIME 03/13/17 [History] Mirtazapine 15 mg PO DAILY 03/13/17 [History] Nystatin [Nystatin Crm] 15 gm TOP BID 03/13/17 [History] [place]-3/DHA/Epa/Fish Oil [Fish Oil 1,000 mg Softgel] 2 tab PO DAILY 03/13/17 [ History] [place]-3/DHA/Epa/Fish Oil [Fish Oil 1,400 MG Softgel] 1,500 mg PO DAILY 03/13/17 [History] Potassium 20 meq PO DAILY 03/13/17 [History] Prednisone [IJD: Prednisone] 2.5 mg PO DAILY 03/13/17 [History] Aspirin [Adult Low Dose Aspirin EC] 81 mg PO DAILY 04/18/17 [History] L.acidoph,Paracasei, B.lactis [Probiotic] 1 cap PO DAILY 04/18/17 [History] Mineral Oil/Pet Hy-Phl Oint [Aquaphor Healing Ointment] 1 applic TOP BID [History] DULoxetine [Cymbalta] 1 tab PO DAILY 07/07/18 [History] Isotonix 1 pack PO DAILY 07/07/18 [History] Saw [place] 550 mg PO BID 07/07/18 [History] Past Medical History HEENT History: Reports: Cataract Cardiovascular History: Reports: CAD, Hypertension, Stents, Other (See Below) 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 Respiratory History: Reports: Bronchitis, Recurrent, COPD Gastrointestinal History: Reports: Hemorrhoids Genitourinary History: Reports: Urinary Incontinence Musculoskeletal History: Reports: Osteoarthritis, RA Neurological History: Reports: Neuropathy, Peripheral Psychiatric History: Reports: Dementia Hematologic History: Reports: Anticoagulation Therapy Immunologic History: Reports: Other (See Below) Other Immunologic History: d/t medications Dermatologic History: Reports: Eczema - Infectious Disease History Infectious Disease History: Reports: Chicken Pox, Measles, Mumps - Past Surgical History HEENT Surgical History: Reports: None Cardiovascular Surgical History: Reports: Pacer GI Surgical History: Reports: Hernia Repair/Other Social & Family History - Family History Family Medical History: Noncontributory - Tobacco Use Smoking Status *Q: Never Smoker - Caffeine Use Caffeine Use: Reports: None - Recreational Drug Use Recreational Drug Use: No ED ROS GENERAL - Review of Systems Review Of Systems: See Below Constitutional: Denies: Fever, Chills HEENT: Reports: No Symptoms Respiratory: Reports: Shortness of Breath. Denies: Wheezing, Cough, Sputum Cardiovascular: Reports: Dyspnea on Exertion GI/Abdominal: Reports: No Symptoms : Reports: No Symptoms Musculoskeletal: Reports: No Symptoms ED EXAM, GENERAL - Physical Exam Exam: See Below Exam Limited By: Physical Impairment General Appearance: Alert, WD/WN, No Apparent Distress Head: Atraumatic, Normocephalic Neck: Normal Inspection, Supple, Non-Tender, Full Range of Motion Respiratory/Chest: No Respiratory Distress, Decreased Breath Sounds. No: Crackles, Rales, Rhonchi, Wheezing, Accessory Muscle Use, Retractions Cardiovascular: Regular Rate, Rhythm, No Murmur GI/Abdominal: Soft, Non-Tender Extremities: Non-Tender, No Pedal Edema Course - Vital Signs Last Recorded V/S: Last Vital Signs Temp 96.5 F 07/07/18 00:47 Pulse 92 07/07/18 01:47 Resp 27 H 07/07/18 01:47 BP 150/74 H 07/07/18 01:47 Pulse Ox 93 L 07/07/18 01:47 - Orders/Labs/Meds Orders: Active Orders 24 hr Category Date Time Status EKG Documentation Completion [RC] ASDIRECTED Care 07/07/18 01:18 Active EKG 12 Lead [EK] Urgent Ther 07/07/18 01:18 Ordered Labs: Laboratory Tests 07/07/18 07/07/18 07/07/18 Range/Units 01:25 01:25 01:25 WBC 12.8 H (4.5-11.0) K/uL RBC 4.76 (4.30-5.90) M/uL Hgb 10.0 L (12.0-15.0) g/dL Hct 35.7 L (40.0-54.0) % MCV 75 L (80-98) fL MCH 21 L (27-31) pg MCHC 28 L (32-36) % Plt Count 383 (150-400) K/uL Neut % (Auto) 85 H (36-66) % Lymph % (Auto) 6 L (24-44) % Mccone % (Auto) 5 (2-6) % Eos % (Auto) 4 (2-4) % Baso % (Auto) 1 (0-1) % Sodium 143 (140-148) mmol/L Potassium 4.1 (3.6-5.2) mmol/L Chloride 106 (100-108) mmol/L Carbon Dioxide 29 (21-32) mmol/L Anion Gap 7.8 (5.0-14.0) mmol/L BUN 27 H (7-18) mg/dL Creatinine 1.0 (0.8-1.3) mg/dL Est Cr Clr Drug Dosing 57.79 mL/min Estimated GFR (MDRD) > 60 (>60) Glucose 147 H (74-106) mg/dL Calcium 8.7 (8.5-10.1) mg/dL Total Bilirubin 0.2 (0.2-1.0) mg/dL AST 15 (15-37) U/L ALT 13 (12-78) U/L Alkaline Phosphatase 94 (46-116) U/L CK-MB (CK-2) 4.3 H (0-3.6) mg/mL Troponin I 0.107 H* (0.000-0.056) ng/mL Total Protein 7.1 (6.4-8.2) g/dL Albumin 2.9 L (3.4-5.0) g/dL Globulin 4.2 H (2.3-3.5) g/dL Albumin/Globulin Ratio 0.7 L (1.2-2.2) Departure - Departure Time of Disposition: 02:28 Disposition: Refer to Observation Condition: Poor Clinical Impression: Non-ST elevation myocardial infarction (NSTEMI), Need for comfort care - Discharge Information Referrals: PCP,None [Primary Care Provider] - Forms: ED Department Discharge - My Orders Last 24 Hours: My Active Orders 07/07/18 01:18 EKG Documentation Completion [RC] ASDIRECTED EKG 12 Lead [EK] Urgent - Assessment/Plan Last 24 Hours: My Active Orders 07/07/18 01:18 EKG Documentation Completion [RC] ASDIRECTED EKG 12 Lead [EK] Urgent Plan: Assessment Acuity = acute Site and laterality = non-ST elevation myocardial infarction complicated patient with known history of coronary artery disease and dementia with a pacemaker in place Etiology = probable coronary artery disease Manifestations = dyspnea and hypoxic Location of injury = Home Lab values = WBC elevated 12.8 consistent leukocytosis, hemoglobin low at 10.2 consistent with microchromic anemia troponin elevated 0.107 albumin low at 2.9 consistent hypoalbuminemia EKG demonstrates paced rhythm chest x-ray shows no acute process Plan I did review his lab work and prognosis as well as treatment options with his family and himself. He is a DNR he does not want any aggressive measures he declined transport and declined any surgical intervention. He would like to move to comfort care only. So the plan is to admit to the hospital I did call and discuss case with Dr. Garcia at 2:20 kindly agreed to admit him. He still has an oxygen requirement the plan would be to qualify him for O2 discharged with comfort care back to his assisted living facility. I talked to him about blood thinning medications which are usually used for treatment and they declined because he has had bad outcome on this in the past which required transfusion This note was dictated using Telepathy voice recognition software please call with any questions on syntax or grammar.
--- NOTE | 2018-07-07 02:01 | CRLCR ---
Indication: Shortness of breath Technique: Chest 1 view Comparison: April 18, 2017 Findings/Impression: The patient`s face overlies the left lung apex. Lung volumes are low. There is patchy atelectasis or infiltrate at both lung bases. The cardiac size appears to be within normal limits. No significant effusion identified. Left-sided pacemaker device noted. No acute osseous abnormality. Dictated by Lou Butler MD @ Jul 07 2018 1:56AM Signed by Dr. Lou Butler @ Jul 07 2018 1:58AM
[2018-07-07] MEDS ORDERED: Nitroglycerin 0.4 MG Tab.SL SL PRN (02:32)
[2018-07-07] MEDS ORDERED: Morphine 10 MG/0.5 ML Oral Syringe PO PRN (04:23)
[2018-07-07] MEDS: ACETAMINOPHEN 500 MG PO SCH ×4 (05:59→20:09)
[2018-07-07] MEDS ORDERED: Acetaminophen 500 MG Tab PO SCH (06:00)
[2018-07-07] MEDS ORDERED: Acetaminophen 325 MG Tab PO SCH ×2 (06:00→09:00)
--- NOTE | 2018-07-07 08:08 | HP ---
IDENTIFYING DATA: Jalen Vanegas is an 82-year-old male from [facility]. CHIEF COMPLAINT: Short of breath. HISTORY OF PRESENT ILLNESS: This elderly male has noted history of atherosclerosis with coronary artery disease, previous interventional therapy with stenting, and peripheral vascular disease as well as accompanying hyperlipidemia and hypertension. He has cardiac dysrhythmia with pacemaker implant with pacemaker management provided by Cardiology Services at [facility] in [place]. He was feeling well in the evening, ate his standard suppertime meal, and shortly after retiring to bed, developed rather abrupt onset of restlessness and dyspnea. Oxygen was provided. He was transferred to the emergency room for evaluation. During the ER evaluation, O2 sats stabilized with supplemental oxygen. With administration of a nebulizer, his breathing became less labored. He denied pain. He has had no recent fevers, chills, cough, or purulent sputum production. He was admitted with mildly elevated cardiac enzymes suggesting the possibility of an acute cardiac event. PAST MEDICAL HISTORY: Previous surgeries include cataract extraction. Chronic health problems include coronary artery disease with previous vascular stenting, hypertension, peripheral vascular disease with bilateral arterial bypass, and reported chronic obstructive pulmonary disease. Additionally, he has a history of osteoarthritis, rheumatoid arthritis with chronic steroid therapy, and Alzheimer's type dementia. HABITS: Remote history of tobacco use, abstaining for approximately 30 years. No routine use of caffeinated beverages or alcohol. IMMUNIZATIONS: Refuses influenza vaccines at the [facility]. Pneumococcal and tetanus boosters are current. ALLERGIES: REPORTED TO KIWI AND TOMATOES, WELL CITRUS FRUIT. MEDICATION ALLERGIES REPORTED TO HYDROCODONE AND SIMVASTATIN. CURRENT MEDICATIONS: Sublingual nitroglycerin p.r.n. angina; gelatin capsules one tablet t.i.d.; acetaminophen 500 mg t.i.d.; furosemide 20 mg b.i.d.; melatonin 6 mg at bedtime; mirtazapine 15 mg at bedtime; omega-3 fish oil capsules two tablets daily; potassium 20 mEq daily; prednisone 2.5 mg daily as maintenance therapy for RA; aspirin 81 mg daily; acidophilus one capsule daily; duloxetine 1 tablet daily, dose unknown; saw palmetto 550 mg b.i.d. SOCIAL HISTORY: , retired. Has resided at [facility] for 2 years' time secondary to instability and progressive dementia with inability to care for self. Daughter resides in this community and is his main decision maker. He has four children, all living within state by daughter's report. FAMILY HISTORY: Unable to provide factual information. REVIEW OF SYSTEMS: NEUROLOGIC: Previous history of cataracts, moderate hearing loss though does not use hearing aids. Cognitive impairment secondary to Alzheimer's dementia. No history of stroke. CARDIAC: Known history of coronary artery disease. No recent syncope, near syncope, dizziness, or angina-like pain. Pacemaker in place. No history of diabetes. RESPIRATORY: Reports of chronic obstructive pulmonary disease. No chronic respiratory therapies. Oxygen initiated en route to the hospital, though no chronic oxygen therapy is in place. GI: Appetite is generally good. He feeds self. Bowel movements are regular without melena or hematochezia. No chronic dyspepsia or hepatitis. : Mild incontinence reported. Renal function is preserved. MUSCULOSKELETAL: Arthralgias primarily of the knees with chronic rheumatoid arthritis lending itself to generalized stiffness. PHYSICAL EXAMINATION: GENERAL: Appearance is that of an elderly male, now sleeping soundly. No acute distress. Oxygen in place. VITAL SIGNS: Initial vital signs include a blood pressure of 150/74, respiratory rate 27, O2 sats of 93% with supplemental oxygen, pulse rate 92, paced rhythm by EKG, temperature 96.5. HEENT: Eyes are closed. No facial asymmetries. No oropharyngeal lesions. NECK: Brisk carotid pulses. No bruits or JVD. No adenopathy. LUNGS: Mild upper airway congestion. Nontachypneic. No wheezes or rales heard. Symmetrical aeration. HEART: Regular without murmurs heard. Pacemaker in place. ABDOMEN: Soft and nontender. Active sounds. No abdominal bruits noted. EXTREMITIES: Warm and pink. Mild edema at the ankles bilaterally. No open skin lesions. Diminished pulses at the ankles. No skin breakdown. LABORATORY DATA: On admission, 12-lead EKG, paced rhythm. WBC 12.8, hemoglobin 10, platelet count 383,000. Differential of 85 segs, 6 lymphocytes, 5 monos, 4 eosinophils. Sodium 143, potassium 4.1, BUN 27, creatinine 1, GFR greater than 60, glucose 147, calcium 8.7, alkaline phosphatase 94, AST 15. CPK-MB is mildly elevated at 4.3. Troponin mildly elevated at 0.107. IMPRESSIONS: 1. Abrupt onset of acute dyspnea. Consider non-ST segment elevation myocardial infarction with mildly elevated cardiac enzymes. 2. History of coronary artery disease, status post interventional therapy with stenting. 3. Cardiac dysrhythmia with pacemaker implant. 4. Hypertension. 5. Hyperlipidemia. 6. Peripheral vascular disease with history of arterial bypass. 7. Report of chronic obstructive pulmonary disease without inhalation therapies or oxygen. 8. Progressive cognitive impairment secondary to Alzheimer's type dementia. PLAN: In conversation in the emergency room, the patient and family had expressed desire to manage conservatively. They refused referral to Cardiology Services. He is admitted for comfort measures. Do not resuscitate/do not intubate status will be maintained. Oxygen therapy is in place to maintain O2 sats in appropriate range. We will continue with his standard maintenance medications. Additionally, provide morphine concentrate on a p.r.n. basis for dyspnea or general restlessness. Anticipate return to assisted care facility if stable within 24 hours. Followup labs including repeat troponin level have been requested. Júnior Garcia MD /[id number]
[2018-07-07] MEDS ORDERED: DULoxetine 30 MG Cap PO SCH ×2 (09:00→18:00)
[2018-07-07] MEDS: FUROSEMIDE 20 MG PO SCH ×2 (09:24→13:41)
[2018-07-07] MEDS: POTASSIUM CHLORIDE 20 MEQ PO SCH (09:25)
[2018-07-07] MEDS: Aspirin 81 MG Tab.EC**POM PO SCH (09:25)
[2018-07-07] MEDS: PREDNISONE 5 MG PO SCH (09:26)
--- NOTE | 2018-07-07 12:43 | PCM.SN ---
- Free Text/Narrative Note: Ed presented last night with shortness of breath and restlessness. Symptoms resolved fairly quickly with minimal intervention. He has been symptom-free since that time. Initial troponin elevated at 0.1 and did rise to 0.7 on recheck. I believe this represents a non-ST elevation myocardial infarction. I discussed the situation with the patient and his daughter. We reviewed potential options for medical management. The patient has been on a variety of antiplatelet medications in addition to aspirin and has had difficulty with all of them. They were not interested in retrying any of these medications. His vital signs have all been stable and there is no strong indication to start a beta josé antonio at this time a stent current vital signs. The patient is not interested in starting new medications because he is symptom-free. They do not want aggressive interventions. I did visit with hospice today and are contemplating utilizing hospice services after hospital discharge. They're not interested in additional troponin levels since it will not change consultant at this time. Patient is agreeable to stay one more night to ensure that he has a good night and then would like to return back to his assisted living facility, likely with hospice. Flakito Trejo M.D.
[2018-07-07] MEDS ORDERED: Magnesium Hydroxide 400 MG/5 ML Susp 30 ML Cup PO PRN (14:23)
[2018-07-07] MEDS ORDERED: DULoxetine 30 MG Cap PO ONE (18:09)
[2018-07-07] MEDS ORDERED: DULOXETINE 60 MG PO ONE (18:15)
[2018-07-07] MEDS ORDERED: DULOXETINE 60 MG PO SCH (18:30)
[2018-07-07] MEDS ORDERED: Melatonin 3 MG Tab PO SCH (21:00)
[2018-07-07] MEDS ORDERED: MIRTAZAPINE 15 MG PO SCH (21:00)
[2018-07-08] MEDS: ACETAMINOPHEN 500 MG PO SCH ×2 (05:33→06:28)
[2018-07-08 07:25] VITALS: BP 119/76
[2018-07-08] MEDS: FUROSEMIDE 20 MG PO SCH ×2 (08:52→13:27)
[2018-07-08] MEDS: Aspirin 81 MG Tab.EC**POM PO SCH (08:53)
[2018-07-08] MEDS: POTASSIUM CHLORIDE 20 MEQ PO SCH (08:54)
[2018-07-08] MEDS: PREDNISONE 5 MG PO SCH (08:54)
[2018-07-08] MEDS ORDERED: DULoxetine 30 MG Cap PO SCH ×2 (09:00→17:00)
[2018-07-08] MEDS ORDERED: DULOXETINE 60 MG PO SCH (09:00)
--- NOTE | 2018-07-08 10:08 | PCM.DCSUM1 ---
Discharge Summary - Hospital Course Brief History: 82-year-old male with extensive coronary artery disease history, rheumatoid arthritis and Alzheimer's dementia without behavioral disturbance who presented with dyspnea and restlessness. Workup in the emergency room was concerning for non-ST elevation myocardial infarction. The patient and family did not want aggressive intervention but he was admitted for symptom management and potential medical management. Diagnosis: Stroke: No - Discharge Data Discharge Date: 07/08/18 Discharge Disposition: DC/Tfer to Hospice - Home 50 Condition: Fair - Discharge Diagnosis/Problem(s) (1) Non-ST elevation myocardial infarction (NSTEMI) SNOMED Code(s): 20351423 ICD Code: I21.4 - NON-ST ELEVATION (NSTEMI) MYOCARDIAL INFARCTION Status: Acute Current Visit: Yes (2) Palliative care encounter SNOMED Code(s): 025304830 ICD Code: Z51.5 - ENCOUNTER FOR PALLIATIVE CARE Status: Acute Current Visit: Yes (3) Alzheimer's dementia without behavioral disturbance SNOMED Code(s): 28773132 ICD Code: G30.9 - ALZHEIMER'S DISEASE, UNSPECIFIED; F02.80 - DEMENTIA IN OTH DISEASES CLASSD ELSWHR W/O BEHAVRL DISTURB Status: Chronic Current Visit: Yes Qualifiers: Alzheimer's disease onset: late-onset Qualified Code(s): G30.1 - Alzheimer' s disease with late onset; F02.80 - Dementia in other diseases classified elsewhere without behavioral disturbance (4) Rheumatoid arthritis SNOMED Code(s): 98116314 ICD Code: M06.9 - RHEUMATOID ARTHRITIS, UNSPECIFIED Status: Chronic Current Visit: Yes Qualifiers: Rheumatoid arthritis location: multiple sites Rheumatoid factor presence: unspecified presence Qualified Code(s): M06.9 - Rheumatoid arthritis, unspecified - Patient Summary/Data Hospital Course: Ed presented to the emergency room after an episode of dyspnea and restlessness. Workup in the emergency room revealed evidence for a non-ST elevation myocardial infarction with a troponin of 0.1. He was symptom-free at that time. He was admitted to the hospital for further workup and management. Discussions were held about potential transfer for cardiology evaluation and intervention. The patient and family did not want to be transferred for urgent intervention but were interested in a palliative approach with symptomatic management and potentially medical management. During the day following admission he did not have any recurrent episodes. His repeat troponin several hours after the first one had gone up to 0.7. I discussed the potential options with the family at this point. They felt that given his extensive coronary artery disease as well as his dementia further complicated by his intolerance to a variety of antiplatelet medications that they did not wish to pursue any medical management or further intervention. They were interested in a hospice approach and hospice was consulted. the patient and family were interested in hospice care after discharge. He did remain hospitalized overnight following admission. He has not had any recurrence of his dyspnea or restlessness. No episodes of chest pain. Vital signs have all been stable. He is safe and stable for discharge back to the assisted living facility at this time. Hospice will be performing an admission when he arrives home. No medication changes were made at the time of discharge. - Patient Instructions Diet: Heart Healthy Diet Activity: As Tolerated Showering/Bathing: May Shower Notify Provider of: Increased Pain Other/Special Instructions: 1. You were in the hospital for management of a non- ST segment elevation myocardial infarction. Your symptoms resolved without significant intervention. We did review additional medication adjustments but because of previous difficulties with the medications we would consider adding we have elected to avoid changing medications. Because you are symptom-free at this time we do not need to make aggressive medication changes. After discussion , the plan is to transition to hospice care as you return home. They can help to manage your symptoms and keep you in your comfortable environment at home. 2. Continue your usual home medications as previously prescribed. 3. Code status - DNR/DNI with comfort measures - Discharge Plan *PRESCRIPTION DRUG MONITORING PROGRAM REVIEWED*: Not Applicable *COPY OF PRESCRIPTION DRUG MONITORING REPORT IN PATIENT EMI: Not Applicable Home Medications: Home Meds Nitroglycerin 0.4 mg SL ASDIRECTED PRN 10/27/15 [History] *[place] Collagen Gelatin 1 dose PO TID 02/25/16 [History] Acetaminophen [Mapap] 1,000 mg PO TID 03/13/17 [History] Furosemide [Lasix] 20 mg PO BID 03/13/17 [History] Melatonin 6 mg PO BEDTIME 03/13/17 [History] Mirtazapine 15 mg PO DAILY 03/13/17 [History] Nystatin [Nystatin Crm] 15 gm TOP BID 03/13/17 [History] [place]-3/DHA/Epa/Fish Oil [Fish Oil 1,000 mg Softgel] 2 tab PO DAILY 03/13/17 [ History] [place]-3/DHA/Epa/Fish Oil [Fish Oil 1,400 MG Softgel] 1,500 mg PO DAILY 03/13/17 [History] Potassium 20 meq PO DAILY 03/13/17 [History] Prednisone [IJD: Prednisone] 2.5 mg PO DAILY 03/13/17 [History] Aspirin [Adult Low Dose Aspirin EC] 81 mg PO DAILY 04/18/17 [History] L.acidoph,Paracasei, B.lactis [Probiotic] 1 cap PO DAILY 04/18/17 [History] Mineral Oil/Pet Hy-Phl Oint [Aquaphor Healing Ointment] 1 applic TOP BID [History] DULoxetine [Cymbalta] 1 tab PO DAILY 07/07/18 [History] Isotonix 1 pack PO DAILY 07/07/18 [History] Saw Tad 550 mg PO BID 07/07/18 [History] Oxygen Therapy Mode: Room Air Patient Handouts: Heart Attack, [id number] Referrals: PCP,None [Primary Care Provider] - (f/u as needed after the hospital stay) - Discharge Summary/Plan Comment DC Time >30 min.: Yes (45 - coordinating hospice care) - Patient Data Vitals - Most Recent: Last Vital Signs Temp 35.1 C L 07/08/18 07:24 Pulse 87 07/08/18 07:24 Resp 18 07/08/18 07:24 BP 119/76 07/08/18 07:24 Pulse Ox 93 L 07/08/18 07:24 Weight - Most Recent: 81.374 kg I&O - Last 24 hours: Intake & Output 07/07/18 07/08/18 07/08/18 22:59 06:59 14:59 Intake Total 200 240 Balance 200 240 Lab Results - Last 24 hrs: Laboratory Results - last 24 hr 07/07/18 Range/Units 10:05 Troponin I 0.702 H* (0.000-0.056) ng/mL Med Orders - Current: Current Medications Acetaminophen (Tylenol Extra Strength) 1,000 mg PO TID ZEYNEP Aspirin (Halfprin) 81 mg PO DAILY ZEYNEP Last Admin: 07/08/18 08:53 Dose: 81 mg Furosemide (Lasix) 20 mg PO BIDDIURETIC ZEYNEP Last Admin: 07/08/18 08:52 Dose: 20 mg Magnesium Hydroxide (Milk Of Magnesia) 30 ml PO BID PRN PRN Reason: Constipation Melatonin (Melatonin) 6 mg PO BEDTIME [facility] Last Admin: 07/07/18 20:11 Dose: 6 mg Mirtazapine (Remeron) 15 mg PO BEDTIME [facility] Last Admin: 07/07/18 20:08 Dose: 15 mg Morphine Sulfate (Morphine 10 Mg/0.5 Ml Oral Syringe) 5 mg PO Q4H PRN PRN Reason: DISCOMFORT/DYSPNEA Nitroglycerin (Nitrostat) 0.4 mg SL ASDIRECTED PRN PRN Reason: Chest Pain Duloxetine 60mg (CapsulePom) 0 each PO DAILY@1700 [facility] Last Admin: 07/07/18 18:57 Dose: 60 each Potassium Chloride (Klor-Con M20) 20 meq PO DAILY [facility] Last Admin: 07/08/18 08:54 Dose: 20 meq Prednisone (Prednisone) 2.5 mg PO DAILY [facility] Last Admin: 07/08/18 08:54 Dose: 2.5 mg Discontinued Medications Acetaminophen (Tylenol) 500 mg PO TID [facility] Acetaminophen (Tylenol Extra Strength) 500 mg PO TID@0600,1200,2100 [facility] Acetaminophen (Tylenol Extra Strength) 1,000 mg PO TID@0600,1200,2100 [facility] Last Admin: 07/08/18 06:28 Dose: 1,000 mg Duloxetine HCl (Cymbalta) 60 mg PO DAILY [facility] Last Admin: 07/07/18 09:27 Dose: Not Given Duloxetine HCl (Cymbalta) 60 mg PO DAILY [facility] Last Admin: 07/07/18 18:59 Dose: Not Given Duloxetine HCl (Cymbalta) 60 mg PO DAILY [facility] Duloxetine 60mg (CapsulePom) 0 each PO DAILY [facility] Duloxetine 60mg (CapsulePom) 0 each PO ONETIME ONE Stop: 07/07/18 18:16 Last Admin: 07/07/18 18:57 Dose: Not Given - Exam Quality Assessment: Denies: Supplemental Oxygen General: Reports: Alert, Cooperative, No Acute Distress. Denies: Oriented Lungs: Reports: Normal Respiratory Effort Cardiovascular: Reports: Regular Rate, Regular Rhythm GI/Abdominal Exam: Soft, No Distention Skin: Reports: Warm, Dry Psy/Mental Status: Reports: Alert, Normal Affect
[2018-07-08] MEDS ORDERED: ACETAMINOPHEN 500 MG PO SCH (14:00)
== END 2018-07-08 13:45 | disposition hospice, home (50) ==
LOC: JP.ED 00:40 → JP.MS 02:30
PROVIDERS: ADMIT Family Medicine; ATTEND Internal Medicine
DX: I21.4 Non-ST elevation (NSTEMI) myocardial infarction (principal); G30.9 Alzheimer's disease, unspecified; M06.9 Rheumatoid arthritis, unspecified; Z51.5 Encounter for palliative care; I25.10 Atherosclerotic heart disease of native coronary artery without angina pectoris; I10 Essential (primary) hypertension; J40 Bronchitis, not specified as acute or chronic; Z79.82 Long term (current) use of aspirin; Z79.899 Other long term (current) drug therapy; Z91.018 Allergy to other foods; Z88.6 Allergy status to analgesic agent; Z88.8 Allergy status to other drugs, medicaments and biological substances
CPT/HCPCS: 36415; 71045; 80053; 82553; 84484; 85025; 93005; 93010; 99285-25; A9270-GY; G0378